=== PATIENT | female | born 1935 | race Caucasian/White ===

== ENCOUNTER 2017-01-16 15:45 | Inpatient (IN) ==
[2017-01-16] MEDS ORDERED: NS 1,000 ML IV ONE (16:11)
[2017-01-16 16:28] LABS: MANUAL DIFF NEEDED? NO
[2017-01-16 16:30] LABS: BASO% 0.8 % (0.0-0.8); EOS# 0.12 X1000 (0.0-0.7); EOS% 1.9 % (0.0-10.0); HEMATOCRIT 39.6 % (37.0-47.0); IMM GRAN# 0.04 X1000 (0.0-0.04); IMM GRAN% 0.6 % (0.0-0.5); LYMPH# 1.42 X1000 (1.2-3.4); MCH 29.6 PG (27-31); MCHC 32.8 g/dL (33-37); MCV 90.2 FL (81-99); MONO# 0.38 X1000 (0.11-0.59); MONO% 5.9 % (1.7-9.3); MPV 10.3 FL (7.4-10.4); NEUT% 68.8 % (42.2-75.2); PLT 293 X1000 (130-400); RBC 4.39 XMIL (4.2-5.4)
[2017-01-16 16:49] LABS: INR 2.67 (0.86-1.15); PROTIME 28.4 Seconds (12.1-15.5)
[2017-01-16 16:50] LABS: PTT PL 52.3 Seconds (22.6-43.9)
[2017-01-16 16:54] LABS: ALBUMIN 3.4 g/dL (3.5-5.0); CALCIUM 8.6 mg/dL (8.8-10.2); MAGNESIUM 1.8 mg/dL (1.5-2.7); POTASSIUM 3.9 mmol/L (3.5-5.1); TOTAL BILIRUBIN 0.6 mg/dL (0.20-1.00); TOTAL PROTEIN 6.3 g/dL (6.3-8.3)
--- NOTE | 2017-01-16 16:59 | Diag Imaging Result Doc PS360 ---
CHEST-PORTABLE - 01/16/2017 INDICATION: Weakness TECHNIQUE: COMPARISON: 01/14/2017 FINDINGS: Lung volumes are much lower, now severely low. Stable sternotomy wires. Stable cardiomegaly. There is probably some nonspecific left basilar infiltrate or atelectasis. IMPRESSION: Nonspecific findings. Electronically signed by Parth Corbin 01/16/2017 4:56 PM
--- NOTE | 2017-01-16 17:00 | EKG Report ---
Test Performed on : 01/16/2017 4:46:34 PM Test Reason : CHEST PAIN Blood Pressure : / mmHG Vent. Rate : 083 BPM Atrial Rate : 075 BPM P-R Int : 000 ms QRS Dur : 080 ms QT Int : 374 ms P-R-T Axes : 000 055 071 degrees QTc Int : 439 ms Atrial fibrillation. Nonspecific T wave abnormality Abnormal ECG No previous ECGs available Unconfirmed Result
--- NOTE | 2017-01-16 17:27 | PROVIDER DOCUMENTATION ---
This chart was entered by Ria Anthony Scribe, acting as scribe for Melissa Florentino MD. HPI-General Adult - General Chief Complaint: Fall Stated Complaint: FALLING Time Seen by Provider: 01/16/17 15:50 Source: patient Allergies/Adverse Reactions: Patient Allergies Allergy/AdvReac Type Severity Reaction Status Date / Time cortisone [Cortisone] AdvReac Intermediate NAUSEA/VOMI Verified 01/16/17 15:48 TING Penicillins AdvReac Intermediate NAUSEA/VOMI Verified 01/16/17 15:48 TING propoxyphene HCl * AdvReac Intermediate NAUSEA/VOMI Verified 01/16/17 15:48 [From Darvon] TING Home Medications: Home Medication List Medication Instructions Recorded Confirmed Last Taken Type Levothyroxine [Synthroid] 50 microgm PO DAILY 10/29/13 01/16/17 05/14/16 08:00 History Lorazepam [Ativan] 1 mg PO QHS 10/29/13 01/16/17 05/13/16 History SIMVAstatin [Zocor] 40 mg PO QHS 10/29/13 01/16/17 05/13/16 History Sertraline HCl 100 mg PO DAILY 10/29/13 01/16/17 05/14/16 08:00 History Cholecalciferol (Vitamin D3) 1,000 unit PO HS 05/14/16 01/16/17 05/13/16 History [Vitamin D3] Hydrocodone/APAP 7.5 mg/325 mg 1 each PO BID PRN PRN 05/14/16 01/16/17 1 Week Ago History [[place]-7.5] Metoprolol Tartrate 50 mg PO DAILY 05/14/16 01/16/17 05/14/16 08:00 History Warfarin [Coumadin] 2 mg PO QHS 05/14/16 01/16/17 05/13/16 History Tramadol [Ultram] 50 mg PO Q6H PRN PRN #12 tablet 05/15/16 01/16/17 Unknown Rx Tramadol [Ultram] 50 mg PO Q6H PRN PRN #12 tablet 01/12/17 01/16/17 Unknown Rx - History of Present Illness -Gen Adult Nature of Presenting Problems: Pt is 81 y/o F presents to the ED with weakness. Pt states recently falling on Saturday. Pt states L wrist fx and multiple rib fx. Pt denies falling since Saturday. Pt states she could not get out of bed this am. Pt denies N and V. Pt denies headache. Pt states she has home health care. Location of Pain/Injury: reports: generalized Pain Radiation: reports: no radiation Quality of Pain: reports: aching Severity: reports: mild Onset/Duration: reports: 3 days ago Timing: reports: still present Context/Activities at Onset: reports: light activity Modifying Factors: improves with: nothing Associated Symptoms: reports: denies symptoms Similar Symptoms Previously?: Yes Recently seen or treated by another doctor?: Yes Review of Systems - Adult - REVIEW OF SYSTEMS - ADULT Constitutional: reports: no symptoms reported Eyes: reports: no symptoms reported Ears, Nose, Mouth & Throat: reports: no symptoms reported Cardiovascular: reports: no symptoms reported Respiratory: reports: no symptoms reported Gastrointestinal: reports: no symptoms reported Genitourinary: reports: no symptoms reported Musculoskeletal: reports: muscle weakness. denies: bone pain, back pain, neck pain Integumentary: reports: no symptoms reported Neurological: reports: no symptoms reported Psychiatric: reports: no symptoms reported Endocrine: reports: no symptoms reported Hematologic/Lymphatic: reports: no symptoms reported Allergic/Immunologic: reports: no symptoms reported All Other Systems: Reviewed and Negative Past History - Adult - PAST MEDICAL HISTORY-ADULT Review of Records: reports: Nursing Assessment Review, Medications Reviewed, Social history reviewed & non-contributory. Major Childhood Illnesses: reports: denies history Cardiovascular: reports: A-Fib, CHF, HTN, hyperlipidemia Respiratory: reports: denies history Gastrointestinal: reports: GERD Obstetrical/Gynecological: reports: denies history Genitourinary: reports: denies history Musculoskeletal: reports: arthritis, fibromyalgia Neurological: reports: denies history Psychiatric: reports: anxiety, depression Endocrine/Immune: reports: Diabetes, thyroid disorder (hypothyroid) Other Conditions: reports: denies history - PRIOR SURGERIES/PROCEDURES Surgical/Procedure History: reports: CABG, cholecystectomy, BTL, tonsillectomy - IMMUNIZATION STATUS Childhood Immunizations: See Nurse Assessment Flu Vaccine: See Nurse Assessment - FAMILY HISTORY Family History: reviewed, not pertinent - SOCIAL HISTORY Smoking: denies Substance Use: denies Living Situation: alone Physical Exam-General - PHYSICAL EXAM-ADULT Initial Vital Signs Reviewed: Yes - CONSTITUTIONAL General Appearance: alert, mild distress - EYES Eyes: PERRL/EOMI, pink conjunctivae - HEAD, EARS, NOSE, MOUTH & THROAT HENMT: normocephalic/atraumatic, moist mucous membranes, normal ENT inspection - NECK Neck: non-tender, full range of motion, supple, normal inspection - RESPIRATORY Respiratory: chest non-tender, lungs clear, normal breath sounds - CARDIOVASCULAR Cardiovascular: normal peripheral pulses, regular rate, rhythm - GASTROINTESTINAL (ABDOMEN) Abdominal Exam: normal bowel sounds, non tender, soft - LYMPHATIC Lymphatic: no adenopathy - MUSCULOSKELETAL Back Exam: normal inspection, no CVA tenderness, no vertebral tenderness Extremity: normal range of motion, non-tender, normal gait, normal inspection, other (L wrist splint) - SKIN Integumentary: normal color, normal turgor, warm/dry, ecchymosis (to bilateral knees) - NEUROLOGIC Neurologic: grossly normal - PSYCHIATRIC Psych/Mental Status: normal mood/affect, oriented x 3 Progress - PLAN OF CARE/RESULTS Progress/Plan/Lab Results: Vital Signs - 8 hr 01/16/17 15:46 Temperature 96.9 F L Pulse Rate 84 Respiratory Rate 16 Blood Pressure 112/066 O2 Sat by Pulse Oximetry 97 Result Diagrams: 01/16/17 16:25 01/16/17 16:25 - EKG 1 Time of EKG reading by physician:: 16:46 EKG Read and Signed by:: Melissa Florentino EKG Interpretation (*Must complete 3 of following elements*): Abnormal Rate: 83 Rhythm: atrial fibrillation Comments: nonspecific T wave abnormality - XRAY 1 XRAY Study: Chest Impression: Normal XRAY Interpretation: nonspecific findings - CONSULTS/PCP/HOSPITALIST Notification #1 *Consult/PCP/Hospitalist*: Dr. Covarrubias Time Discussed: 17:12 Reason/Comments: Dr. Florentino consults with Dr. Covarrubias about admit of Pt Consult Disposition: Admit Departure - Departure Date of Disposition Decision: 01/16/17 Time of Disposition Decision: 17:12 DIAGNOSIS: Wrist fracture, Multiple rib fractures, Generalized weakness, CHF (congestive heart failure) Disposition: ADMITTED INPATIENT 09 Certified Medical Emergency: Emergent Condition: Stable Referrals and Follow-Ups: Jonelle Hernandez MD [Primary Care Provider] - - Critical Care Note This patient required my direct & personal management of CC.: No This chart was documented by the indicated scribe, (Ria Anthony Scribe) and accurately reflects the services I performed and decisions made by me, Melissa Florentino MD, as attested by the provider's signature.
[2017-01-16 19:04] LABS: UR AMPHETAMINES QUAL NONE DETECTED (NONE DETECT); UR BARBITUATES QUAL NONE DETECTED (NONE DETECT); UR BENZODIAZEPIN QUAL NONE DETECTED (NONE DETECT); UR CANNABINOIDS QUAL NONE DETECTED (NONE DETECT); UR COCAINE QUAL NONE DETECTED (NONE DETECT); UR MDMA QUAL NONE DETECTED (NONE DETECT); UR METHADONE QUAL NONE DETECTED (NONE DETECT); UR METHAMPHETAMINE QUAL NONE DETECTED (NONE DETECT); UR OPIATES QUAL NONE DETECTED (NONE DETECT); UR OXYCODONE QUAL NONE DETECTED (NONE DETECT); UR PCP QUAL NONE DETECTED (NONE DETECT); UR TCA QUAL NONE DETECTED (NONE DETECT)
[2017-01-16 19:19] LABS: BILIRUBIN URINE NEGATIVE (NEGATIVE); BLOOD URINE NEGATIVE (NEGATIVE); CLARITY CLEAR (CLEAR); COLOR YELLOW; GLUCOSE URINE NEGATIVE (NEGATIVE); LEUKOCYTES URINE TRACE (NEGATIVE); NITRITE URINE NEGATIVE (NEGATIVE); PROTEIN URINE NEGATIVE (NEGATIVE); SP GRAVITY URINE 1.025; UROBILINOGEN URINE NORMAL
[2017-01-16 19:24] LABS: URINE CAST NONE SEEN /LPF; URINE CRYSTAL NONE SEEN /HPF; URINE CULTURE PL NEEDED? YES; URINE EPITHELIAL CELLS <10 /HPF (<10); URINE RBC <10 /HPF (<10); URINE SOURCE CLEAN CATCH; URINE WBC <10 /HPF (<10)
[2017-01-16] MEDS: COUMADIN PO SCH (23:12)
[2017-01-16] MEDS: NORCO-7.5 PO PRN (23:12)
[2017-01-16] MEDS: ATIVAN PO PRN (23:13)
[2017-01-17 06:20] LABS: HEMATOCRIT 37.9 % (37.0-47.0); HEMOGLOBIN 12.5 g/dL (12.0-16.0); MCH 28.8 PG (27-31); MCV 87.3 FL (81-99); MPV 10.2 FL (7.4-10.4); RBC 4.34 XMIL (4.2-5.4)
[2017-01-17] MEDS: NORCO-7.5 PO PRN ×2 (06:26→18:10)
[2017-01-17 06:32] LABS: HEMOGLOBIN A1C 6.7 % (4.8-6.0)
[2017-01-17 06:50] LABS: ALBUMIN 3.4 g/dL (3.5-5.0); CALCIUM 8.7 mg/dL (8.8-10.2); MAGNESIUM 1.7 mg/dL (1.5-2.7); POTASSIUM 3.3 mmol/L (3.5-5.1); TOTAL BILIRUBIN 0.7 mg/dL (0.20-1.00); TOTAL PROTEIN 6.1 g/dL (6.3-8.3)
[2017-01-17 06:57] LABS: FREE T4 1.12 ng/dL (0.93-1.70)
[2017-01-17] MEDS: HUMALOG SUBQ SCH ×2 (07:21→11:01)
--- NOTE | 2017-01-17 08:41 | PROGRESS NOTE ---
DATE: 01/17/2017 SUBJECTIVE: Patient denies any new complaints. Denies any chest pain, palpitations. Denies any GI or issues. States that she feels too weak to get out of bed. OBJECTIVE: Vital Signs: Temperature 97, pulse 70, respiratory rate 18, BP 109/67, saturation 98% on room air. General: Patient is awake, alert, currently in no respiratory distress. Pleasant to talk with. Elderly female who appears her stated age. Neck: Supple. Cardiovascular: Regular rate. Chest: Relatively clear. Abdomen: Soft. Extremities: She does appear to move all extremities well, although she is generally weak. She has got a brace on her left wrist from recent fall and fracture. Neurologic: No focal changes. Patient is awake, alert, pleasant to talk with. Follows commands. LABS: CBC and CMP essentially normal with an A1c of 6.7. Potassium 3.3. Albumin is 3.4. INR is 2.67 with a D-dimer of 0.57. ASSESSMENT: 1. Generalized weakness with frequent falls. 2. Hypercoagulopathy. Patient is on Coumadin, although her level is therapeutic. Certainly is quite dangerous at this point due to her frequent falls for her to continue on Coumadin. At this point, we will hold her Coumadin and simply do a baby aspirin and will follow. 3. Left wrist fracture. Continue [place]. 4. Hypothyroidism. 5. Hypertension. She is on Toprol. Will follow this, as this could be a nidus for her falls. We will get physical therapy involved. We will continue on telemetry and further orders as needed. She is on Coumadin for atrial fibrillation, currently is rate controlled. cc: Harry Covarrubias MD
[2017-01-17] MEDS ORDERED: SYNTHROID PO SCH (09:00)
[2017-01-17] MEDS: LOPRESSOR PO SCH (09:17)
[2017-01-17] MEDS: ZOLOFT PO SCH (09:17)
[2017-01-17] MEDS: FISH OIL CONCENTRATE PO SCH (09:18)
[2017-01-17] MEDS: ASPIRIN PO SCH (09:18)
--- NOTE | 2017-01-17 15:17 | HISTORY AND PHYSICAL ---
CHIEF COMPLAINT: Generalized pain and weakness. HISTORY OF PRESENT ILLNESS: This is an 81-year-old female who presented to the ER via EMS with weakness. She fell Saturday and was found to have multiple rib fractures as well as a left wrist fracture. She stated that overnight she became weak and pain was such that she was unable to get out of bed this morning. She denied any nausea, vomiting, or any headache or any other accompanying symptoms. Chest x-ray revealed severely low lung volumes with stable sternotomy wires with probably some nonspecific left atelectasis. She is being admitted for further evaluation and treatment. PAST MEDICAL HISTORY: 1. Mechanical aortic valve replacement. 2. Chronic anticoagulation due to #1. 3. Diabetes type 2. 4. Hypertension. 5. History of atrial fibrillation. 6. Hypothyroid. 7. Recurrent falls. PAST SURGICAL HISTORY: Aortic valve replacement. Atrial fibrillation. Cholecystectomy, tubal ligation, and tonsillectomy. SOCIAL HISTORY: She denies alcohol, tobacco, or illicit drug use. ALLERGIES: Penicillin which causes nausea and vomiting, Darvon which causes nausea and vomiting. HOME MEDICATIONS: A list will be obtained. DIAGNOSTICS: Chest x-ray revealed extremely low lung volumes with left basilar atelectasis. REVIEW OF SYSTEMS: A 14 point review of systems is discussed with patient with pertinent positives stated in the HPI. She denied any chest pain, palpitations, dizziness, syncope, any fever, chills, productive cough, shortness of breath, nausea, vomiting, diarrhea, constipation, black or bloody vomitus, black or bloody stools, hematuria, dysuria, frequency, or urgency. PHYSICAL EXAMINATION: GENERAL: This is a 81-year-old female who is lying in the bed, frail, in no distress. VITAL SIGNS: Blood pressure is 136/72 with a heart rate of 86, respirations are 18, temperature is 98 degrees oral with room air saturation of 100%. CARDIOVASCULAR: Regular rate and rhythm. S1 and S2 are appreciated. PULMONARY: Breath sounds are clear with no increased work of breathing noted. GASTROINTESTINAL: Abdomen is soft, nontender, nondistended. Bowel sounds in all 4 quadrants. EXTREMITIES: No clubbing or edema. She does have bilateral bruises to her lower extremities from a recent fall. She does have a brace to her left wrist and bruises to her right hand. Pulses are palpable x4. NEUROLOGIC: She is alert, and oriented x3. ASSESSMENT AND PLAN: 1. Generalized weakness with frequent falls. 2. Chronic anticoagulation due to mechanical aortic valve with a target INR of 2.5-3.5. 3. Left wrist fracture. Splint intact, good PMS 4. Hypothyroidism. 5. Hypertension. 6. History of atrial fibrillation. 7. Frequent falls. She will be admitted and placed on telemetry. We will identify her home medications and continue as appropriate. We will consult physical therapy to evaluate. She may certainly need rehab. In review of the patient's chart she has had frequent falls for quite some time but she requires chronic anticoagulation due to a mechanical aortic valve and atrial fibrillation. At present, we will watch. Her INR is at target now. We will continue to watch her INR closely. We may need Cardiology. This is certainly dangerous for her at this point, given her frequent falls although there is a risk of stopping anticoagulation due to atrial fib and mechanical aortic valve. We will assess her progress. Dictated by BIRGIT Turner for Harry Covarrubias MD cc: BIRGIT Turner MD
[2017-01-17] MEDS: HUMALOG DOSE (PARKWAY) SUBQ SCH ×2 (16:09→21:25)
[2017-01-17] MEDS: VITAMIN D PO SCH (21:25)
[2017-01-17] MEDS: ZOCOR PO SCH (21:25)
[2017-01-17] MEDS: ATIVAN PO PRN (21:25)
[2017-01-17] MEDS: COUMADIN PO SCH (21:25)
[2017-01-18] MEDS: HUMALOG DOSE (PARKWAY) SUBQ SCH ×4 (06:28→21:42)
[2017-01-18] MEDS ORDERED: SYNTHROID PO SCH (07:00)
[2017-01-18] MEDS: LOPRESSOR PO SCH (08:28)
[2017-01-18] MEDS: ASPIRIN PO SCH (08:28)
[2017-01-18] MEDS: FISH OIL CONCENTRATE PO SCH (08:28)
[2017-01-18] MEDS: ZOLOFT PO SCH (08:29)
[2017-01-18] MEDS: NORCO-7.5 PO PRN (08:29)
[2017-01-18] MEDS: ROCEPHIN 1 GM/NS 1 GM/50 ML IVPB IV SCH (12:18)
--- NOTE | 2017-01-18 12:25 | PROGRESS NOTE ---
DATE: 01/18/2017 SUBJECTIVE: The patient notes that she is having pain in the right side where she has broken ribs. She states it hurts with any movement and this was preventing her from moving around at home. PHYSICAL EXAMINATION: Vital Signs: Reviewed. Temperature 99 degrees, pulse 81, respiratory 16, BP 161/72, saturation 99% on room air. General: The patient is awake, alert. She is pleasant to talk with. She is in no respiratory distress. Neck: Supple. CV: Regular rate. Chest clear. Abdomen soft. Extremities: Moves all extremities. Neurologic: No changes. LABORATORY DATA: Urine growing diphtheroids, otherwise, CBC and CMP are normal. ASSESSMENT: 1. Frequent falls. 2. Generalized weakness. 3. Right-sided chest wall pain secondary to previous rib fractures from previous fall. 4. Chronic anticoagulation, on mechanical heart valve. Although would certainly prefer patient not to stay on Coumadin due to her falls, she is mandated to stay on Coumadin with her mechanical heart valve. 5. Left wrist fracture. Continue splinting. 6. Hypothyroidism. 7. Hypertension. PLAN: The patient currently is stable. We will treat her urine, although likely contaminant. She does note that she is more weak than usual. We will continue to follow. Further orders as needed. cc: Harry Covarrubias MD
--- NOTE | 2017-01-18 13:11 | DISCHARGE SUMMARY ---
ADMISSION DATE: 01/16/2017 DISCHARGE DATE: DIAGNOSES: 1. Frequent falls. 2. Generalized weakness. 3. Right-sided chest wall pain secondary to previous rib fractures from previous fall. 4. Mechanical aortic valve replacement on chronic anticoagulation. 5. Left wrist fracture. 6. Hypothyroidism. 7. Hypertension. DIAGNOSTICS: 01/16/2017 chest x-ray reveals lung volumes are low, stable sternotomy wires, stable cardiomegaly. HOSPITAL COURSE: Ms. Hwang presented to the ER complaining of generalized weakness and pain. She has had multiple falls over the previous days and she has sustained rib fractures as well as a wrist fracture. We did continue her home medications. She was seen by physical therapy. The patient is noted to be weak. She is noted to have difficulty moving due to weakness as well as pain from falls. PHYSICAL EXAMINATION: Cardiovascular: Regular rate and rhythm. S1, S2 appreciated. Pulmonary: Breath sounds are clear with no increased work of breathing noted. Gastrointestinal: Abdomen is soft, nontender, nondistended. Bowel sounds in all 4 quadrants. Extremities: No clubbing, cyanosis, or edema. She does have a splint to her left wrist. Neurologic: She is alert and oriented. Vital Signs: Blood pressure is 143/66 with a heart rate of 71, respirations are 18, temperature is 97.5 degrees oral with room air sats 94%. DISCHARGE ACTIVITY: As per physical therapy. DISCHARGE DIET: Healthy heart. DISCHARGE MEDICATIONS: 1. Warfarin 2 mg p.o. at bedtime. 2. Fish oil 300 mg daily. 3. Zoloft 100 mg daily. 4. Metoprolol tartrate 50 mg daily. 5. Ativan 1 mg at bedtime. 6. Synthroid 50 mcg daily. 7. [place] 7.5 b.i.d. p.r.n. 8. Vitamin D3 1000 units at bedtime. 9. Metformin 250 mg at bedtime. INR checks we will be per facility protocol. We would prefer Ms. Hwang not to stay on Coumadin due to her frequent falls although she is mandated to stay on Coumadin due to her mechanical heart valve. She is being discharged to rehab in stable condition via EMS transport. This is a greater than 30 minutes discharge. Dictated by BIRGIT Turner for Harry Covarrubias MD cc: FlorBIRGIT Hadley MD
[2017-01-18] MEDS ORDERED: NORCO-10 PO PRN (19:56)
[2017-01-18] MEDS ORDERED: CYANOCOBALAMIN SUBQ SCH (20:00)
[2017-01-18] MEDS: ATIVAN PO PRN (21:37)
[2017-01-18] MEDS: COUMADIN PO SCH (21:39)
[2017-01-18] MEDS: ZOCOR PO SCH (21:39)
[2017-01-18] MEDS: VITAMIN D PO SCH (21:42)
[2017-01-19] MEDS: HUMALOG DOSE (PARKWAY) SUBQ SCH ×2 (06:08→11:49)
[2017-01-19] MEDS ORDERED: SYNTHROID PO SCH (07:00)
[2017-01-19] MEDS ORDERED: AMARYL PO SCH (08:00)
[2017-01-19] MEDS ORDERED: GLUCOPHAGE PO SCH (08:00)
[2017-01-19] MEDS: ZOLOFT PO SCH (08:23)
[2017-01-19] MEDS: FISH OIL CONCENTRATE PO SCH (08:23)
[2017-01-19] MEDS: LOPRESSOR PO SCH (08:24)
[2017-01-19] MEDS: ASPIRIN PO SCH (08:29)
[2017-01-19 10:13] LABS: INR 2.27 (0.86-1.15); PROTIME 25.1 Seconds (12.1-15.5)
[2017-01-19 11:47] VITALS: BP 142/57
[2017-01-19] MEDS: ROCEPHIN 1 GM/NS 1 GM/50 ML IVPB IV SCH (11:49)
[2017-01-19] MEDS ORDERED: LACTULOSE PO ONE (12:00)
--- NOTE | 2017-01-19 12:15 | PROGRESS NOTE ---
DATE: 01/19/2017 SUBJECTIVE: The patient notes that she is feeling better. She is still having right-sided rib pain. OBJECTIVE: Vital Signs: Temperature 98 degrees, pulse 81, respiratory rate 18, blood pressure 133/61 to 164/85, saturation 96% on room air. General: Patient is awake and alert. She is currently in no respiratory distress. Pleasant to talk with. Neck: Supple. Cardiovascular: Regular rate. Chest: Clear. ASSESSMENT: 1. Hypertension, stable. 2. Left wrist fracture. 3. Right rib fractures. 4. Generalized weakness. 5. Mechanical aortic valve, requiring anticoagulation. 6. Hypertension. PLAN: We will continue as noted. The patient will be transferred to rehabilitation. cc: aHrry Covarrubias MD
[2017-01-19] MEDS ORDERED: VITAMIN D PO SCH (21:00)
== END 2017-01-19 13:35 ==
LOC: P.ED 15:45 → P.MEDSURG 17:51
PROVIDERS: ATTEND Family Medicine

== ENCOUNTER 2017-03-28 10:24 | Inpatient (IN) ==
[2017-03-28] MEDS ORDERED: MORPHINE IV ONE ×2 (11:16→12:35)
[2017-03-28] MEDS ORDERED: ZOFRAN IV ONE (11:16)
[2017-03-28 11:22] LABS: MANUAL DIFF NEEDED? NO
[2017-03-28 11:27] LABS: BASO% 0.7 % (0.0-0.8); EOS# 0.09 X1000 (0.0-0.7); EOS% 1.5 % (0.0-10.0); HEMOGLOBIN 12.7 g/dL (12.0-16.0); IMM GRAN# 0.03 X1000 (0.0-0.04); IMM GRAN% 0.5 % (0.0-0.5); LYMPH# 1.09 X1000 (1.2-3.4); LYMPH% 17.9 % (20.5-51.1); MCH 30.3 PG (27-31); MCHC 33.4 g/dL (33-37); MCV 90.7 FL (81-99); MONO# 0.34 X1000 (0.11-0.59); MONO% 5.6 % (1.7-9.3); NEUT% 73.8 % (42.2-75.2); PLT 274 X1000 (130-400); RBC 4.19 XMIL (4.2-5.4)
[2017-03-28 11:40] LABS: INR 3.15; PROTIME 35.6 Seconds (9.2-11.7)
[2017-03-28 11:45] LABS: CALCIUM 8.6 mg/dL (8.8-10.2); POTASSIUM 3.9 mmol/L (3.5-5.1); TOTAL BILIRUBIN 0.7 mg/dL (0.20-1.00); TOTAL PROTEIN 6.8 g/dL (6.3-8.3)
[2017-03-28] MEDS ORDERED: DILAUDID IV ONE (13:47)
[2017-03-28] MEDS ORDERED: DILAUDID ONE (14:35)
[2017-03-28] MEDS: NORCO-10 PO PRN (19:29)
[2017-03-28] MEDS: VITAMIN D PO SCH (22:46)
[2017-03-28] MEDS: ZOCOR PO SCH (22:46)
[2017-03-28] MEDS: ATIVAN PO SCH (22:47)
[2017-03-28] MEDS: COUMADIN PO SCH ×2 (22:47→23:03)
[2017-03-29] MEDS: MORPHINE IV PRN ×4 (00:46→17:31)
[2017-03-29 05:42] LABS: HEMATOCRIT 36.6 % (37.0-47.0); HEMOGLOBIN 12.1 g/dL (12.0-16.0); MCH 30.6 PG (27-31); MCHC 33.1 g/dL (33-37); MCV 92.7 FL (81-99); RBC 3.95 XMIL (4.2-5.4)
[2017-03-29 05:53] LABS: CALCIUM 8.6 mg/dL (8.8-10.2); POTASSIUM 3.7 mmol/L (3.5-5.1)
[2017-03-29] MEDS: ZOLOFT PO SCH (08:40)
[2017-03-29] MEDS: LOPRESSOR PO SCH (08:41)
[2017-03-29] MEDS ORDERED: SYNTHROID PO SCH (09:00)
[2017-03-29] MEDS: NORCO-10 PO PRN ×2 (09:30→15:20)
[2017-03-29 15:12] LABS: URINE CULTURE NEEDED? NO; URINE MICRO REVIEW NEEDED? NO; URINE SOURCE CLEAN CATCH
[2017-03-29 15:20] LABS: BILIRUBIN URINE NEGATIVE (NEGATIVE); BLOOD URINE NEGATIVE (NEGATIVE); COLOR YELLOW; GLUCOSE URINE NEGATIVE (NEGATIVE); LEUKOCYTES URINE NEGATIVE (NEGATIVE); NITRITE URINE NEGATIVE (NEGATIVE); PH URINE 5.5; PROTEIN URINE TRACE mg/dL (NEGATIVE); SP GRAVITY URINE 1.028; TURBIDITY URINE CLEAR (CLEAR); UROBILINOGEN URINE NORMAL (NORMAL)
[2017-03-29 15:21] LABS: UR EPITHELIAL CELLS <10 /HPF (<10); URINE BACTERIA NEGATIVE /HPF; URINE RBC <10 /HPF (<10); URINE WBC <10 /HPF (<10)
[2017-03-29] MEDS: COUMADIN PO SCH (20:28)
[2017-03-29] MEDS: ATIVAN PO SCH (20:29)
[2017-03-29] MEDS: VITAMIN D PO SCH (20:29)
[2017-03-29] MEDS: ZOCOR PO SCH (20:29)
[2017-03-30] MEDS: MORPHINE IV PRN ×5 (01:46→18:31)
[2017-03-30 06:03] LABS: HEMATOCRIT 34.4 % (37.0-47.0); HEMOGLOBIN 11.1 g/dL (12.0-16.0); MCH 30.3 PG (27-31); MCHC 32.3 g/dL (33-37); MPV 10.2 FL (7.4-10.4); RBC 3.66 XMIL (4.2-5.4)
[2017-03-30 06:28] LABS: CALCIUM 8.8 mg/dL (8.8-10.2); POTASSIUM 4.2 mmol/L (3.5-5.1)
[2017-03-30] MEDS: SYNTHROID PO SCH (06:37)
[2017-03-30] MEDS: LOPRESSOR PO SCH (09:50)
[2017-03-30] MEDS: ZOLOFT PO SCH (09:50)
[2017-03-30] MEDS: VITAMIN D PO SCH (20:43)
[2017-03-30] MEDS: ZOCOR PO SCH (20:43)
[2017-03-30] MEDS: ATIVAN PO SCH (20:43)
[2017-03-30] MEDS: COUMADIN PO SCH (20:43)
[2017-03-31 06:17] LABS: MCH 30.6 PG (27-31); MCHC 33.3 g/dL (33-37); MCV 91.9 FL (81-99); MPV 10.3 FL (7.4-10.4); RBC 3.59 XMIL (4.2-5.4)
[2017-03-31] MEDS: SYNTHROID PO SCH (06:29)
[2017-03-31 06:37] LABS: AGAP 11; BUN 17 mg/dL (8-22); CALCIUM 8.1 mg/dL (8.8-10.2); CHLORIDE 98 mmol/L (98-107); COSMO 276; POTASSIUM 3.6 mmol/L (3.5-5.1); SODIUM 137 mmol/L (136-145); TCO2 28 mmol/L (25-35)
[2017-03-31] MEDS: MORPHINE IV PRN (08:19)
[2017-03-31] MEDS: ZOLOFT PO SCH (08:20)
[2017-03-31] MEDS: LOPRESSOR PO SCH (08:20)
[2017-03-31] MEDS ORDERED: MILK OF MAGNESIA PO ONE (13:05)
[2017-03-31] MEDS ORDERED: MILK OF MAGNESIA PO PRN (13:05)
[2017-03-31] MEDS ORDERED: DULCOLAX PR ONE (13:05)
[2017-03-31] MEDS: NORCO-10 PO PRN (16:58)
[2017-03-31] MEDS: ZOCOR PO SCH (22:41)
[2017-03-31] MEDS: COUMADIN PO SCH (22:41)
[2017-03-31] MEDS: VITAMIN D PO SCH (22:41)
[2017-03-31] MEDS: ATIVAN PO SCH (22:41)
[2017-04-01 06:01] LABS: MANUAL DIFF NEEDED? NO
[2017-04-01 06:05] LABS: BASO% 0.6 % (0.0-0.8); EOS% 3.8 % (0.0-10.0); HEMATOCRIT 33.9 % (37.0-47.0); HEMOGLOBIN 11.3 g/dL (12.0-16.0); IMM GRAN# 0.02 X1000 (0.0-0.04); IMM GRAN% 0.4 % (0.0-0.5); LYMPH# 1.02 X1000 (1.2-3.4); LYMPH% 19.2 % (20.5-51.1); MCH 29.8 PG (27-31); MCHC 33.3 g/dL (33-37); MCV 89.4 FL (81-99); MONO# 0.43 X1000 (0.11-0.59); MONO% 8.1 % (1.7-9.3); MPV 10.1 FL (7.4-10.4); NEUT% 67.9 % (42.2-75.2); PLT 267 X1000 (130-400); RBC 3.79 XMIL (4.2-5.4)
[2017-04-01 06:21] LABS: INR 2.88; PROTIME 32.4 Seconds (9.2-11.7)
[2017-04-01] MEDS: SYNTHROID PO SCH (06:33)
[2017-04-01 06:37] LABS: CALCIUM 8.9 mg/dL (8.8-10.2); POTASSIUM 3.5 mmol/L (3.5-5.1)
[2017-04-01] MEDS ORDERED: MIRALAX PO SCH (09:00)
[2017-04-01] MEDS ORDERED: ZOFRAN IV ONE (09:07)
[2017-04-01] MEDS: NS 1,000 ML IV SCH (09:24)
[2017-04-01] MEDS: MORPHINE IV PRN (10:00)
[2017-04-01] MEDS: NORCO-10 PO PRN (13:42)
[2017-04-01] MEDS: LOPRESSOR PO SCH (14:55)
[2017-04-01] MEDS: ZOLOFT PO SCH (14:55)
[2017-04-01] MEDS: PROTONIX IV SCH (18:49)
[2017-04-01] MEDS: ZOCOR PO SCH (20:14)
[2017-04-01] MEDS: COUMADIN PO SCH (20:14)
[2017-04-01] MEDS: VITAMIN D PO SCH (20:14)
[2017-04-01] MEDS: ATIVAN PO SCH (20:14)
[2017-04-02] MEDS: SYNTHROID PO SCH ×2 (04:55→06:28)
[2017-04-02] MEDS: NORCO-10 PO PRN ×3 (04:55→22:18)
[2017-04-02] MEDS: NS 1,000 ML IV SCH ×3 (04:55→13:42)
[2017-04-02 05:57] LABS: MANUAL DIFF NEEDED? NO
[2017-04-02 06:10] LABS: BASO% 0.6 % (0.0-0.8); EOS# 0.24 X1000 (0.0-0.7); EOS% 5.1 % (0.0-10.0); HEMATOCRIT 33.5 % (37.0-47.0); LYMPH# 1.28 X1000 (1.2-3.4); LYMPH% 27.1 % (20.5-51.1); MCH 29.6 PG (27-31); MCHC 32.8 g/dL (33-37); MCV 90.1 FL (81-99); MONO# 0.33 X1000 (0.11-0.59); NEUT% 60.2 % (42.2-75.2); PLT 277 X1000 (130-400); RBC 3.72 XMIL (4.2-5.4)
[2017-04-02 06:12] LABS: INR 3.04; PROTIME 34.3 Seconds (9.2-11.7)
[2017-04-02 06:29] LABS: CALCIUM 8.2 mg/dL (8.8-10.2); POTASSIUM 3.6 mmol/L (3.5-5.1)
[2017-04-02] MEDS: LOPRESSOR PO SCH (12:38)
[2017-04-02] MEDS: PROTONIX IV SCH (12:38)
[2017-04-02] MEDS: ZOLOFT PO SCH (12:38)
[2017-04-02] MEDS: SODIUM CHLORIDE 0.9% INJ SCH (12:38)
[2017-04-02] MEDS: HUMALOG SUBQ SCH ×2 (13:41→22:51)
[2017-04-02] MEDS: VITAMIN D PO SCH (20:10)
[2017-04-02] MEDS: COUMADIN PO SCH (20:10)
[2017-04-02] MEDS: ZOCOR PO SCH (20:10)
[2017-04-02] MEDS: ATIVAN PO SCH (20:10)
[2017-04-03] MEDS: NS 1,000 ML IV SCH ×2 (01:13→12:37)
[2017-04-03] MEDS: SYNTHROID PO SCH (06:56)
[2017-04-03] MEDS: HUMALOG SUBQ SCH ×2 (06:56→12:38)
[2017-04-03] MEDS: NORCO-10 PO PRN ×2 (08:18→12:52)
[2017-04-03] MEDS: PROTONIX IV SCH ×2 (08:18→12:39)
[2017-04-03] MEDS: SODIUM CHLORIDE 0.9% INJ SCH (08:18)
[2017-04-03] MEDS: LOPRESSOR PO SCH (08:18)
[2017-04-03] MEDS: ZOLOFT PO SCH (08:19)
[2017-04-03 11:57] VITALS: BP 113/62
== END 2017-04-03 14:58 ==
LOC: SUPCPDRO → ED 10:24 → SUATTDRO 14:21 → 4N 14:21
PROVIDERS: ATTEND Internal Medicine

== ENCOUNTER 2017-04-30 09:47 | Inpatient (IN) ==
--- NOTE | 2017-04-30 11:25 | Diag Imaging Result Doc PS360 ---
EXAM: XRAY HIP W/PELVIS BILAT 3-4VWS HISTORY: MULTIPLE FALLS, RIB PAIN TECHNIQUE: AP pelvis and bilateral hips five views COMMENT: There is generalized osteopenia. The hip joint spaces are well-maintained. There is some cortical irregularity of the inferior pubic ramus on the right. This may be due to a chronic fracture. Clinical correlation is recommended. IMPRESSION: Questionable fracture right inferior pubic ramus. Osteopenia. Electronically signed by Shay Espinoza 04/30/2017 11:23 AM
--- NOTE | 2017-04-30 11:30 | Diag Imaging Result Doc PS360 ---
EXAM: RIBS BILATERAL W/PA CHEST HISTORY: MULTIPLE FALLS, RIB PAIN TECHNIQUE: PA chest and bilateral RIBS five views COMMENT: There are sternotomy wires. There is no evidence of pneumothorax or pleural fluid collection. There is a fracture at the anatomic neck of the right humerus. This was also present on 03/28/2017. There is fracture of the right first and second ribs which was also demonstrated the time the previous examination. No additional fractures are demonstrated. IMPRESSION: Fractures of the right first and second rib and right humerus which were present on 03/28/2017 and do demonstrate some evidence of healing. Electronically signed by Shay Espinoza 04/30/2017 11:27 AM
[2017-04-30 11:49] LABS: MANUAL DIFF NEEDED? NO; URINE MICRO REVIEW NEEDED? NO; URINE SOURCE CATH
[2017-04-30 11:51] LABS: BASO% 0.3 % (0.0-0.8); EOS# 0.25 X1000 (0.0-0.7); EOS% 3.8 % (0.0-10.0); HEMOGLOBIN 10.9 g/dL (12.0-16.0); LYMPH# 1.91 X1000 (1.2-3.4); LYMPH% 29.3 % (20.5-51.1); MCH 29.9 PG (27-31); MCV 90.7 FL (81-99); MONO# 0.49 X1000 (0.11-0.59); MONO% 7.5 % (1.7-9.3); MPV 9.8 FL (7.4-10.4); NEUT% 59.1 % (42.2-75.2); PLT 335 X1000 (130-400); RBC 3.64 XMIL (4.2-5.4)
[2017-04-30 11:55] LABS: BILIRUBIN URINE NEGATIVE (NEGATIVE); BLOOD URINE TRACE (NEGATIVE); COLOR YELLOW; GLUCOSE URINE NEGATIVE (NEGATIVE); LEUKOCYTES URINE LARGE (NEGATIVE); NITRITE URINE POSITIVE (NEGATIVE); PH URINE 6.5; PROTEIN URINE TRACE mg/dL (NEGATIVE); SP GRAVITY URINE 1.025; TURBIDITY URINE HAZY (CLEAR); UROBILINOGEN URINE 2 mg/dL (NORMAL)
[2017-04-30 11:56] LABS: UR EPITHELIAL CELLS <10 /HPF (<10); URINE BACTERIA 4+ /HPF; URINE CULTURE NEEDED? YES; URINE RBC <10 /HPF (<10); URINE WBC TNTC /HPF (<10)
[2017-04-30 12:30] LABS: INR 6.2; PROTIME 73.2 Seconds (9.2-11.7); PTT 68.3 Seconds (22.0-36.0)
[2017-04-30] MEDS ORDERED: LEVAQUIN 250 MG/D5W 250 MG/50 ML IVPB IV ONE (13:21)
[2017-04-30] MEDS ORDERED: NS 1,000 ML IV ONE (13:21)
[2017-04-30 14:16] LABS: ALBUMIN 3.7 g/dL (3.5-5.0); CALCIUM 9.1 mg/dL (8.8-10.2); POTASSIUM 3.9 mmol/L (3.5-5.1); TOTAL BILIRUBIN 1.23 mg/dL (0.20-1.00); TOTAL PROTEIN 6.5 g/dL (6.3-8.3)
[2017-04-30] MEDS ORDERED: ZOFRAN IV PRN (15:10)
[2017-04-30] MEDS: HUMULIN R SUBQ SCH ×2 (17:45→21:50)
[2017-04-30] MEDS: ZOSYN 3.375 GM in NS 50 ML IV SCH (17:48)
[2017-04-30] MEDS: NORCO-7.5 PO PRN (19:10)
[2017-04-30] MEDS: ATIVAN PO SCH (21:50)
[2017-04-30] MEDS: VITAMIN D PO SCH (21:50)
[2017-04-30] MEDS: TYLENOL PO PRN (21:50)
[2017-04-30] MEDS: LOPRESSOR PO SCH (21:50)
[2017-04-30] MEDS: PATIENT'S OWN MED PO SCH (21:51)
[2017-05-01] MEDS: ZOSYN 3.375 GM in NS 50 ML IV SCH ×4 (01:31→20:49)
--- NOTE | 2017-05-01 05:34 | EKG Report ---
Test Performed on : 04/30/2017 3:14:25 PM Test Reason : re-ordered Blood Pressure : / mmHG Vent. Rate : 080 BPM Atrial Rate : 101 BPM P-R Int : 000 ms QRS Dur : 080 ms QT Int : 400 ms P-R-T Axes : 000 031 037 degrees QTc Int : 461 ms Atrial fibrillation. with premature ventricular or aberrantly conducted complexes. Abnormal ECG When compared with ECG of 28-MAR-2017 10:32, No significant change was found Unconfirmed Result
--- NOTE | 2017-05-01 05:34 | EKG Report ---
Test Performed on : 04/30/2017 5:12:25 PM Test Reason : No Order in [employer] Blood Pressure : / mmHG Vent. Rate : 069 BPM Atrial Rate : 069 BPM P-R Int : 164 ms QRS Dur : 078 ms QT Int : 412 ms P-R-T Axes : 073 -26 040 degrees QTc Int : 441 ms Normal sinus rhythm. Normal ECG When compared with ECG of 30-APR-2017 15:14, (Unconfirmed) Sinus rhythm. has replaced Atrial fibrillation. Nonspecific T wave abnormality no longer evident in Anterior leads Unconfirmed Result
[2017-05-01 05:49] LABS: MANUAL DIFF NEEDED? NO
[2017-05-01 06:09] LABS: BASO% 0.4 % (0.0-0.8); EOS# 0.24 X1000 (0.0-0.7); EOS% 4.7 % (0.0-10.0); HEMATOCRIT 31.2 % (37.0-47.0); HEMOGLOBIN 10.1 g/dL (12.0-16.0); LYMPH# 1.65 X1000 (1.2-3.4); LYMPH% 32.5 % (20.5-51.1); MCH 29.5 PG (27-31); MCHC 32.4 g/dL (33-37); MCV 91.2 FL (81-99); MONO# 0.29 X1000 (0.11-0.59); MONO% 5.7 % (1.7-9.3); MPV 9.7 FL (7.4-10.4); NEUT% 56.7 % (42.2-75.2); PLT 325 X1000 (130-400); RBC 3.42 XMIL (4.2-5.4)
[2017-05-01 06:17] LABS: ALBUMIN 3.3 g/dL (3.5-5.0); CALCIUM 8.3 mg/dL (8.8-10.2); MAGNESIUM 1.7 mg/dL (1.5-2.7); POTASSIUM 4.2 mmol/L (3.5-5.1); TOTAL BILIRUBIN 1.14 mg/dL (0.20-1.00)
[2017-05-01] MEDS: SYNTHROID PO SCH (06:25)
[2017-05-01] MEDS: TYLENOL PO PRN (06:25)
[2017-05-01] MEDS: PRILOSEC PO SCH (06:30)
[2017-05-01 06:34] LABS: INR 6.67; PTT 71.3 Seconds (22.0-36.0)
[2017-05-01] MEDS: HUMULIN R SUBQ SCH ×4 (06:57→21:04)
[2017-05-01] MEDS: ZOLOFT PO SCH (08:03)
[2017-05-01] MEDS: LOPRESSOR PO SCH ×2 (13:23→20:49)
--- NOTE | 2017-05-01 18:01 | Diag Imaging Result Doc PS360 ---
KNEE 3 VIEWS RIGHT - 05/01/2017 INDICATION: Knee trauma, swelling TECHNIQUE: COMPARISON: 01/12/2017 FINDINGS: Bones are osteopenic. No fracture or subluxation. There are some stable degeneration at the medial joint compartment. No joint effusion. IMPRESSION: No acute disease or change from prior. Electronically signed by Parth Corbin 05/01/2017 5:59 PM
[2017-05-01] MEDS: NORCO-7.5 PO PRN (20:48)
[2017-05-01] MEDS: ATIVAN PO SCH (20:48)
[2017-05-01] MEDS: VITAMIN D PO SCH (20:49)
[2017-05-01] MEDS: PATIENT'S OWN MED PO SCH (21:05)
[2017-05-02] MEDS ORDERED: ZOSYN ONE (02:26)
[2017-05-02] MEDS: ZOSYN 3.375 GM in NS 50 ML IV SCH ×4 (02:31→22:15)
[2017-05-02] MEDS: NORCO-7.5 PO PRN ×4 (02:31→19:02)
[2017-05-02 05:55] LABS: MANUAL DIFF NEEDED? NO
[2017-05-02 06:01] LABS: BASO% 0.3 % (0.0-0.8); EOS# 0.44 X1000 (0.0-0.7); EOS% 7.5 % (0.0-10.0); HEMATOCRIT 29.7 % (37.0-47.0); HEMOGLOBIN 9.7 g/dL (12.0-16.0); MCH 29.7 PG (27-31); MCHC 32.7 g/dL (33-37); MCV 90.8 FL (81-99); MONO% 6.8 % (1.7-9.3); MPV 9.6 FL (7.4-10.4); NEUT% 56.4 % (42.2-75.2); PLT 334 X1000 (130-400); RBC 3.27 XMIL (4.2-5.4)
[2017-05-02] MEDS: TYLENOL PO PRN (06:08)
[2017-05-02] MEDS: SYNTHROID PO SCH (06:08)
[2017-05-02] MEDS: PRILOSEC PO SCH (06:08)
[2017-05-02 06:09] LABS: INR 4.52; PROTIME 52.2 Seconds (9.2-11.7)
[2017-05-02] MEDS: HUMULIN R SUBQ SCH ×4 (06:09→22:14)
[2017-05-02 06:19] LABS: ALBUMIN 3.3 g/dL (3.5-5.0); CALCIUM 8.4 mg/dL (8.8-10.2); TOTAL BILIRUBIN 1.15 mg/dL (0.20-1.00); TOTAL PROTEIN 6.1 g/dL (6.3-8.3)
[2017-05-02] MEDS: ZOLOFT PO SCH (08:02)
[2017-05-02] MEDS: LOPRESSOR PO SCH ×2 (08:02→22:16)
--- NOTE | 2017-05-02 14:05 | Diag Imaging Result Doc PS360 ---
EXAM: LUMBAR SPINE 2-VIEWS INDICATION: back pain TECHNIQUE: 2 views COMPARISON: 06/09/2013 FINDINGS: There is stable dextroscoliosis. There is chronic vertebral body height at L1 and L2. This is stable. There are endplate degenerative osteophytes at multiple levels, especially at the upper lumbar spine. There is no definite acute fracture, subluxation, or significant intrinsic osseous lesion, otherwise. The surrounding soft tissues are essentially unremarkable. IMPRESSION: Stable chronic changes as described but no evidence of acute osseous abnormality. Electronically signed by Raf Wang 05/02/2017 2:03 PM
[2017-05-02] MEDS: PATIENT'S OWN MED PO SCH (22:16)
[2017-05-02] MEDS: ATIVAN PO SCH (22:16)
[2017-05-02] MEDS: VITAMIN D PO SCH (22:16)
[2017-05-03] MEDS: ZOSYN 3.375 GM in NS 50 ML IV SCH ×2 (04:25→09:22)
[2017-05-03] MEDS: HUMULIN R SUBQ SCH ×2 (06:03→12:32)
[2017-05-03 06:40] LABS: INR 3.52
[2017-05-03] MEDS: NORCO-7.5 PO PRN ×2 (06:43→13:31)
[2017-05-03] MEDS: PRILOSEC PO SCH (06:43)
[2017-05-03] MEDS: SYNTHROID PO SCH (06:43)
[2017-05-03] MEDS: ZOLOFT PO SCH (09:21)
[2017-05-03] MEDS: LOPRESSOR PO SCH (09:21)
[2017-05-03 15:43] VITALS: BP 116/68
[2017-05-03] MEDS ORDERED: SEPTRA DS PO SCH (21:00)
[2017-05-03] MEDS ORDERED: COUMADIN PO SCH (21:00)
== END 2017-05-03 16:05 ==
LOC: ED 09:47 → EDIPHOLD 15:07 → 4N 18:50
PROVIDERS: ATTEND Internal Medicine

== ENCOUNTER 2019-02-15 04:51 | Inpatient (IN) ==
[2019-02-15 05:41] LABS: BASO# 0.02 X1000 (0.0-0.2); BASO% 0.3 % (0.0-0.8); EOS# 0.11 X1000 (0.0-0.7); EOS% 1.6 % (0.0-10.0); HEMOGLOBIN 10.9 g/dL (12.0-16.0); IMM GRAN# 0.02 X1000 (0.0-0.04); IMM GRAN% 0.3 % (0.0-0.5); LYMPH# 1.67 X1000 (1.2-3.4); LYMPH% 24.3 % (20.5-51.1); MCH 30.1 PG (27-31); MCV 91.2 FL (81-99); MONO# 0.47 X1000 (0.11-0.59); MONO% 6.9 % (1.7-9.3); MPV 10.5 FL (7.4-10.4); NEUT# 4.57 X1000 (1.4-6.5); NEUT% 66.6 % (42.2-75.2); PLT 234 X1000 (130-400); RBC 3.62 XMIL (4.2-5.4); RDW 13.4 % (11.5-14.5); WBC 6.86 X1000 (4.8-10.8)
--- NOTE | 2019-02-15 05:41 | PROVIDER DOCUMENTATION ---
HPI-Musculoskeletal Pain/Inj - GENERAL Chief Complaint: Fall Stated Complaint: FALL KNEE PAIN Time Seen by Provider: 02/15/19 04:53 Source: patient - HX OF PRESENT ILLNESS-MUSKULOSKELTAL Nature of Presenting Problem: Patient is a 83 year old white female with history of atrial fibrillation (currently taking warfarin) and fibromyalgia who presents by EMS for left knee pain and bruising after falling on left knee 2 days ago. Denies other injuries. Quality of Pain: reports: aching Onset/Duration: abrupt, 2 days ago Any recent injury?: Yes Locality of Occurance: Home Similar Symptoms Previously?: Yes Recently seen or treated by another doctor?: Yes - FALL INJURY Location of Pain/Injury: reports: lower extremity (left knee) Reason for Fall: reports: lost balance Symptoms prior to fall:: reports: none Loss of Consciousness: no loss of consciousness - LOWER EXTREMITY PAIN/INJURY Lower Extremities Pain: leg: left (bruising,pain), knee: left (bruising, pain) Review of Systems - Adult - REVIEW OF SYSTEMS - ADULT Constitutional: denies: chills, fever Eyes: reports: no symptoms reported Ears, Nose, Mouth & Throat: reports: no symptoms reported Cardiovascular: denies: chest pain Respiratory: denies: shortness of breath Gastrointestinal: reports: no symptoms reported Genitourinary: reports: no symptoms reported Musculoskeletal: reports: see HPI Past History - Adult - PAST MEDICAL HISTORY-ADULT Review of Records: reports: Old Records Reviewed, Nursing Assessment Review, Medications Reviewed, Social history reviewed & non-contributory. Major Childhood Illnesses: reports: denies history Cardiovascular: reports: A-Fib, CHF, HTN, hyperlipidemia Respiratory: reports: denies history Gastrointestinal: reports: GERD Obstetrical/Gynecological: reports: denies history Genitourinary: reports: denies history Musculoskeletal: reports: arthritis, fibromyalgia Neurological: reports: denies history Psychiatric: reports: anxiety, depression Endocrine/Immune: reports: Diabetes, thyroid disorder (hypothyroid) Other Conditions: reports: denies history - PRIOR SURGERIES/PROCEDURES Surgical/Procedure History: reports: CABG, cholecystectomy, BTL, tonsillectomy - IMMUNIZATION STATUS Childhood Immunizations: See Nurse Assessment Flu Vaccine: See Nurse Assessment - FAMILY HISTORY Family History: reviewed, not pertinent Physical Exam-Injury Related - Physical Exam-Injury Related Initial Vital Signs Reviewed: Yes General Appearance: alert, obese Eyes: other (clear) Head, Ears, Nose, Mouth & Throat: normocephalic/atraumatic, moist mucous membranes Neck: non-tender, full range of motion, supple Respiratory: lungs clear Cardiovascular: regular rate, rhythm Abdominal Exam: non tender, soft Back Exam: normal inspection, no CVA tenderness Extremity: other (significant swelling and bruising over left knee and lower leg, 2+ peripheral pulses) Progress - PLAN OF CARE/RESULTS Progress/Plan/Lab Results: 02/15/19 14:50 Gram Stain - Final Knee - Left Laboratory Results - last 24 hr 02/15/19 02/15/19 02/15/19 08:00 08:05 08:05 WBC RBC Hgb Hct MCV MCH MCHC RDW Std Deviation Plt Count MPV Immature Gran % (Auto) Neut % (Auto) Lymph % (Auto) [place] % (Auto) Eos % (Auto) Baso % (Auto) Immature Gran # (Auto) Neut # (Auto) Lymph # (Auto) [place] # (Auto) Eos # (Auto) Baso # (Auto) PT INR PTT (Actin FS) Sodium 138 Potassium 4.3 Chloride 100 Carbon Dioxide 26 Anion Gap 13 BUN 18 Creatinine 1.1 H Estimated GFR/1.73 m2 47 BUN/Creatinine Ratio 16 Glucose 258 H Calculated Osmolality 286 Calcium 8.8 Magnesium 1.7 Total Bilirubin 0.80 AST 14 ALT 7 L Alkaline Phosphatase 70 Creatine Kinase 42 Troponin T Total Protein 6.3 Albumin 4.1 Globulin 2.0 Albumin/Globulin Ratio 2.0 Plasma Lactate 1.6 Urine Source Cancelled Urine Color Cancelled Urine Clarity Cancelled Urine pH Cancelled Ur Specific [place] Cancelled Urine Protein Cancelled Urine Ketones Cancelled Urine Blood Cancelled Urine Nitrite Cancelled Urine Bilirubin Cancelled Urine Urobilinogen Cancelled Urine Microscopic RBC Cancelled Urine WBC Cancelled Urine Microscopic WBC Cancelled Ur Epithelial Cells Cancelled Urine Crystals Cancelled Small Round Cells Cancelled Urine Bacteria Cancelled Urine Casts Cancelled Urine Trichomonas Cancelled Urine Yeast Cancelled Urine Glucose Cancelled Blood Type Antibody Screen 02/15/19 02/15/19 02/15/19 08:05 08:05 11:59 WBC RBC Hgb Hct MCV MCH MCHC RDW Std Deviation Plt Count MPV Immature Gran % (Auto) Neut % (Auto) Lymph % (Auto) [place] % (Auto) Eos % (Auto) Baso % (Auto) Immature Gran # (Auto) Neut # (Auto) Lymph # (Auto) [place] # (Auto) Eos # (Auto) Baso # (Auto) PT 44.5 H INR 4.46 PTT (Actin FS) 63.7 H Sodium Potassium Chloride Carbon Dioxide Anion Gap BUN Creatinine Estimated GFR/1.73 m2 BUN/Creatinine Ratio Glucose Calculated Osmolality Calcium Magnesium Total Bilirubin AST ALT Alkaline Phosphatase Creatine Kinase Troponin T < 0.010 Total Protein Albumin Globulin Albumin/Globulin Ratio Plasma Lactate 1.2 Urine Source Urine Color Urine Clarity Urine pH Ur Specific [place] Urine Protein Urine Ketones Urine Blood Urine Nitrite Urine Bilirubin Urine Urobilinogen Urine Microscopic RBC Urine WBC Urine Microscopic WBC Ur Epithelial Cells Urine Crystals Small Round Cells Urine Bacteria Urine Casts Urine Trichomonas Urine Yeast Urine Glucose Blood Type Antibody Screen 02/15/19 02/15/19 02/15/19 16:06 16:06 16:06 WBC 9.90 RBC 3.57 L Hgb 10.8 L Hct 31.9 L MCV 89.4 MCH 30.3 MCHC 33.9 RDW Std Deviation 13.4 Plt Count 286 MPV 10.1 Immature Gran % (Auto) 0.4 Neut % (Auto) 84.4 H Lymph % (Auto) 12.1 L [place] % (Auto) 3.0 Eos % (Auto) 0.0 Baso % (Auto) 0.1 Immature Gran # (Auto) 0.04 Neut # (Auto) 8.35 H Lymph # (Auto) 1.20 [place] # (Auto) 0.30 Eos # (Auto) 0.00 Baso # (Auto) 0.01 PT 35.8 H INR 3.39 PTT (Actin FS) Sodium Potassium Chloride Carbon Dioxide Anion Gap BUN Creatinine Estimated GFR/1.73 m2 BUN/Creatinine Ratio Glucose Calculated Osmolality Calcium Magnesium Total Bilirubin AST ALT Alkaline Phosphatase Creatine Kinase Troponin T Total Protein Albumin Globulin Albumin/Globulin Ratio Plasma Lactate 2.0 Urine Source Urine Color Urine Clarity Urine pH Ur Specific [place] Urine Protein Urine Ketones Urine Blood Urine Nitrite Urine Bilirubin Urine Urobilinogen Urine Microscopic RBC Urine WBC Urine Microscopic WBC Ur Epithelial Cells Urine Crystals Small Round Cells Urine Bacteria Urine Casts Urine Trichomonas Urine Yeast Urine Glucose Blood Type Antibody Screen 02/15/19 16:06 WBC RBC Hgb Hct MCV MCH MCHC RDW Std Deviation Plt Count MPV Immature Gran % (Auto) Neut % (Auto) Lymph % (Auto) [place] % (Auto) Eos % (Auto) Baso % (Auto) Immature Gran # (Auto) Neut # (Auto) Lymph # (Auto) [place] # (Auto) Eos # (Auto) Baso # (Auto) PT INR PTT (Actin FS) Sodium Potassium Chloride Carbon Dioxide Anion Gap BUN Creatinine Estimated GFR/1.73 m2 BUN/Creatinine Ratio Glucose Calculated Osmolality Calcium Magnesium Total Bilirubin AST ALT Alkaline Phosphatase Creatine Kinase Troponin T Total Protein Albumin Globulin Albumin/Globulin Ratio Plasma Lactate Urine Source Urine Color Urine Clarity Urine pH Ur Specific [place] Urine Protein Urine Ketones Urine Blood Urine Nitrite Urine Bilirubin Urine Urobilinogen Urine Microscopic RBC Urine WBC Urine Microscopic WBC Ur Epithelial Cells Urine Crystals Small Round Cells Urine Bacteria Urine Casts Urine Trichomonas Urine Yeast Urine Glucose Blood Type A POSITIVE Antibody Screen NEGATIVE Orders Category Date Time Status Admit - [facility] Routine AdmDCTranf 02/15/19 11:13 Active Activity - Strict Bedrest ORDERED Care 02/15/19 11:20 Active Cardiac Monitoring DIRECTED Care 02/15/19 07:56 Completed Currently Rec Anticoagulation [QM] ROUTINE Care 02/15/19 11:20 Active FSBS/Accucheck Result AC + HS Care 02/15/19 11:20 Active IV Insertion ORDERED Care 02/15/19 07:56 Completed Intake and Output-Strict ORDERED Care 02/15/19 11:13 Active Notify MD of + Sepsis Screen NOW Care 02/15/19 07:56 Completed Notify Physician As Ordered Care 02/15/19 07:56 Active Nursing [Misc. NRSG Communication Order] Q2H Care 02/15/19 11:24 Active Transfuse .Give-Transfuse Care 02/15/19 15:44 Active Update & Confirm Home Medicati 0800 Care 02/15/19 11:23 Active Vital Signs Order Q 4-HR ASSESS Care 02/15/19 11:13 Completed Z-Document. for Tele Applied ORDERED Care 02/15/19 11:22 Completed Diabetic Diet Diet 02/15/19 11:22 Completed CHEST-1 VIEW [RAD] Stat Exams 02/15/19 07:[address] HEAD W/O CONTRAST [CT] Stat Exams 02/15/19 14:48 Completed KNEE 3 VIEWS LEFT [RAD] Stat Exams 02/15/19 05:00 Completed LOWER LEG-LEFT [RAD] Stat Exams 02/15/19 05:00 Completed BASIC METABOLIC PANEL [CHEM] Routine Lab 02/16/19 05:20 Completed BLOOD CULTURE [BLDCUL] Stat Lab 02/15/19 08:05 Results BMP [BASIC METABOLIC PANEL] [CHEM] Stat Lab 02/15/19 05:01 Completed CBC WITH DIFF [HEME] Routine Lab 02/16/19 05:20 Completed CBC WITH ELECTRONIC DIFF [HEME] Stat Lab 02/15/19 05:01 Completed CBC WITH ELECTRONIC DIFF [HEME] Stat Lab 02/15/19 16:06 Completed CK PROFILE [SP CHEM] Stat Lab 02/15/19 08:05 Completed COMPREHENSIVE METABOLIC PANEL [CHEM] Stat Lab 02/15/19 08:05 Completed D-DIMER [COAG] Stat Lab 02/15/19 05:10 Completed FRESH FROZEN PLASMA [BBK] Stat Lab 02/15/19 16:06 Completed LACTATE, PLASMA [CHEM] Lab 02/15/19 08:05 Completed LACTATE, PLASMA [CHEM] Lab 02/15/19 16:06 Completed LACTATE, PLASMA [CHEM] Stat Lab 02/15/19 11:59 Completed MAGNESIUM [CHEM] Stat Lab 02/15/19 08:05 Completed PROTIME WITH INR [COAG] DAILY Lab 02/16/19 05:20 Received PROTIME WITH INR [COAG] DAILY Lab 02/17/19 06:00 Ordered PROTIME WITH INR [COAG] DAILY Lab 02/18/19 06:00 Ordered PROTIME WITH INR [COAG] Stat Lab 02/15/19 08:05 Completed PROTIME WITH INR [COAG] Timed Lab 02/15/19 16:06 Completed PT [PROTIME WITH INR] [COAG] Stat Lab 02/15/19 05:01 Completed PTT [COAG] Stat Lab 02/15/19 08:05 Completed TROPONIN T Stat Lab 02/15/19 08:05 Completed TYPE & SCREEN [BBK] Stat Lab 02/15/19 16:06 Completed WOUND CULTURE INC GRAM STAIN [RM] Routine Lab 02/15/19 14:50 Results 0.9% Sodium Chloride Inj [Ns] 500 ml Med 02/15/19 15:44 Discontinued IV As Directed mls/hr Hydromorphone [Dilaudid] Med 02/15/19 15:55 Discontinued 0.5 mg IV Q3H PRN PRN Insulin Lispro (Monon) [Humalog (Monon)] Med 02/15/19 16:00 Discontinued See Protocol SUBQ 0700,1100,1600,2100 Morphine Med 02/15/19 06:36 Discontinued 4 mg IV NOW ONE Omeprazole [Prilosec] Med 02/16/19 07:00 Discontinued 40 mg PO DAILY@0700 Ondansetron [Zofran] Med 02/15/19 06:37 Discontinued 4 mg IV NOW ONE Ondansetron [Zofran] Med 02/15/19 11:20 Discontinued 4 mg IV Q4H PRN PRN Pharmacy Order [Vancomycin IV Per Pharmacy] Med 02/15/19 15:15 Discontinued 1 each MISC DIRECTED Phytonadione [Vitamin K] Med 02/15/19 07:04 Discontinued 10 mg SUBQ NOW ONE Promethazine [Phenergan] Med 02/15/19 09:02 Discontinued 25 mg IV NOW ONE Sodium Chloride 0.9% Med 02/15/19 09:02 Discontinued 10 ml INJ NOW ONE Vancomycin 1,350 mg Med 02/17/19 04:00 Discontinued 0.9% Sodium Chloride Inj [Ns] 250 ml IV Q36H Vancomycin 1,700 mg Med 02/15/19 16:00 Discontinued 0.9% Sodium Chloride Inj [Ns] 250 ml IV ONCE Oxygen Device Stat Oth 02/15/19 07:56 Completed Telemetry [OM.EQ] Routine Oth 02/15/19 11:13 Active Transfer/Admit Order [TRANSFER] Routine Transfer 02/15/19 15:48 Completed Result Diagrams: 02/16/19 05:20 02/16/19 05:20 - CHANGE OF SHIFT REPORT (ED Provider) 1 Report Given and Care Transferred to:: Dr. Pelayo Time of Transfer: 07:00 Items Pending: Labs, XRAY Results, Ultrasound Results Departure - Departure Date of Disposition Decision: 02/15/19 Time of Disposition Decision: 17:35 DIAGNOSIS: Coagulation/bleeding tests abnormal Hematoma of left lower extremity Qualifiers: Encounter type: initial encounter Qualified Code(s): S80.12XA - Contusion of left lower leg, initial encounter Disposition: ADMITTED INPATIENT 09 Certified Medical Emergency: Emergent Condition: Critical - Critical Care Note This patient required my direct & personal management of CC.: No Attestation - Physician/ NATALI Attestation Patient care was provided by Advanced Practice Provider:: No The physician spent face to face time with patient:: Yes Advanced Practice Provider documentation review:: Supervising physician onsite and consulted in the evaluation and care of this patient. The physician did have a face to face encounter with the patient.
[2019-02-15 05:48] LABS: CALCIUM 8.4 mg/dL (8.8-10.2); POTASSIUM 4.3 mmol/L (3.5-5.1)
[2019-02-15 06:28] LABS: INR 4.58; PROTIME 45.4 Seconds (11.0-16.0)
[2019-02-15] MEDS ORDERED: MORPHINE IV ONE (06:36)
[2019-02-15] MEDS ORDERED: ZOFRAN IV ONE (06:37)
--- NOTE | 2019-02-15 06:59 | Diag Imaging Result Doc PS360 ---
EXAM: KNEE 3 VIEWS LEFT 02/15/2019 HISTORY: left knee pain TECHNIQUE: Left knee three views COMMENT: There is generalized soft tissue swelling and subcutaneous edema. There is no evidence of acute fracture or dislocation. There is some chondrocalcinosis in the medial meniscus. The appearance of the regional skeleton is unchanged since 11/06/2018. IMPRESSION: Soft tissue swelling. No evidence of acute bony disease. Electronically signed by Shay Espinoza 02/15/2019 6:57 AM
--- NOTE | 2019-02-15 07:00 | Diag Imaging Result Doc PS360 ---
EXAM: LOWER LEG-LEFT 02/15/2019 HISTORY: left lower leg pain TECHNIQUE: Left lower leg two views COMMENT: There is generalized superficial soft tissue swelling. There is no evidence of fracture or dislocation or periosteal reaction. IMPRESSION: Soft tissue swelling. Electronically signed by Shay Espinoza 02/15/2019 6:58 AM
[2019-02-15] MEDS ORDERED: VITAMIN K SUBQ ONE (07:04)
[2019-02-15 08:37] LABS: PTT 63.7 Seconds (22.3-41.8)
[2019-02-15 08:39] LABS: INR 4.46; PROTIME 44.5 Seconds (11.0-16.0)
[2019-02-15 08:52] LABS: ALBUMIN 4.1 g/dL (3.5-5.0); CALCIUM 8.8 mg/dL (8.8-10.2); CREATININE 1.1 mg/dL (0.5-0.9); MAGNESIUM 1.7 mg/dL (1.5-2.7); POTASSIUM 4.3 mmol/L (3.5-5.1); TOTAL BILIRUBIN 0.8 mg/dL (0.20-1.00); TOTAL PROTEIN 6.3 g/dL (6.3-8.3)
[2019-02-15] MEDS ORDERED: SODIUM CHLORIDE 0.9% INJ ONE (09:02)
[2019-02-15] MEDS ORDERED: PHENERGAN IV ONE (09:02)
--- NOTE | 2019-02-15 09:07 | Diag Imaging Result Doc PS360 ---
EXAM: CHEST-1 VIEW 02/15/2019 HISTORY: sepsis TECHNIQUE: Erect AP portable at 0847 COMMENT: The inspiration is less optimal than on 06/06/2018. Otherwise are has been no appreciable change. The heart size is enlarged. There are calcifications in the aorta. IMPRESSION: Cardiomegaly. Electronically signed by Shay Espinoza 02/15/2019 9:05 AM
[2019-02-15] MEDS ORDERED: ZOFRAN IV PRN ×3 (11:20→19:32)
--- NOTE | 2019-02-15 11:29 | HISTORY AND PHYSICAL ---
ADDENDUM REPORT Patient was seen and examined by me. Full note dictated and discussed with nurse practitioner. Patient apparently had had vascular surgery and is on blood thinner. She had fallen at home several days ago on her knee. She came today with noting that her knee was swollen and bluish discoloration. We are going to reverse her anticoagulant, place her in the ICU, continue to follow her pulses which are good presently. Further orders as needed. cc: Harry Covarrubias MD
--- NOTE | 2019-02-15 12:48 | HISTORY AND PHYSICAL ---
CHIEF COMPLAINT: Fall, left knee pain. HISTORY OF PRESENT ILLNESS: This is an 83-year-old female with a prior history of atrial fibrillation, mitral valve replacement, mechanical aortic valve, hypertension, hypothyroid, and frequent falls. She presented to the emergency room via EMS due to increasing pain and swelling to her left lower extremity. At the time of my exam, the patient has no family members present. She is unable to give a history as she is sedated, having morphine and Phenergan within the last 2- 1/2 hours. Reportedly, the patient had surgery to her left leg by one of the physicians at [facility] pain clinic. She said they injected something in her knee because it hurt all the time. She does have a history of frequent falls, and she did fall 2 days ago. PAST MEDICAL HISTORY: Atrial fibrillation, aortic valve replacement, diabetes mellitus type 2, chronic anticoagulation with warfarin, hypertension, hypothyroid. PAST SURGICAL HISTORY: Aortic valve replacement, cholecystectomy, tubal ligation, tonsillectomy, and recent neurosurgery to the left lower extremity. SOCIAL HISTORY: Denies alcohol, tobacco, or illicit drug use. ALLERGIES: According to the chart, penicillin, Darvon, and cortisone, which cause nausea and vomiting. REVIEW OF SYSTEMS: Unable to obtain from the patient. PHYSICAL EXAMINATION: GENERAL: This is an 83-year-old female who is lying on the stretcher in the emergency room, sedated at present. VITAL SIGNS: Blood pressure 170/80 with a heart rate of 90, respirations are 17, temperature is 98.5, with room air saturations of 95% to 98%. HEENT: Head is normocephalic, atraumatic. Mucous membranes are moist. Eyes: Pupils are equal, round, reactive to light. Sclerae are anicteric. NECK: Supple with trachea midline. CARDIOVASCULAR: Irregularly irregular rate and rhythm. S1 and S2 appreciated. EXTREMITIES: She has no right lower extremity edema. She does have left lower extremity edema noted. Peripheral pulses are palpable x4 extremities. PULMONARY: Breath sounds are clear. Chest rises and falls symmetric with respiration. GASTROINTESTINAL: Abdomen is soft, nontender, nondistended with bowel sounds in all 4 quadrants. GENITOURINARY: She has no suprapubic tenderness. NEUROLOGIC: She is sedated. She opens her eyes to her name being called. She does move her extremities at random. She does moan to pain when you move or manipulate her left lower extremity. SKIN: Warm and dry. She has a large hematoma to her left knee, with bruising going down to just past her midshin, as well as edema. She does have blisters noted just in the knee area. IMAGING AND LABORATORY DATA: WBC is 6.8 with hemoglobin 10.9, hematocrit 33, and platelets of 234,000. INR at 5 a.m. was 4.58, with repeat at 8 a.m. at 4.46. Sodium is 136, potassium 4.3, BUN 19, creatinine 1, with a glucose of 230. Chest x-ray reveals cardiomegaly. Lower extremity x- ray reveals soft tissue swelling. Knee x-ray reveals soft tissue swelling. No evidence of acute bony disease. ASSESSMENT: 1. Frequent falls. 2. Hematoma left knee 3. Hypercoagulable state in a patient on chronic anticoagulation, whose target INR is 2.5 to 3.5. 4. History of atrial fibrillation. 5. Diabetes mellitus type 2. 6. Hypertension. 7. Hypothyroid. 8. h/o Aortic valve replacement PLAN: The patient will be admitted to ICU for close monitoring, with neurovascular checks every 2 hours. Will keep her left leg elevated. She will be placed on pattern blood glucose with sliding scale insulin. Will identify her home medications, and once they are verified, will review them and continue as appropriate. She will be placed on a diabetic diet. Will repeat a daily PT and INR, a CBC and BMP in the morning, with a CBC and an INR this afternoon at 3:00. Of note, the patient was given vitamin K For DVT prophylaxis, she is already anticoagulated, and for GI prophylaxis, will use Prilosec. Further treatments pending hospital course. Plan has been discussed with Dr. Covarrubias. Dictated by BIRGIT Turner for Harry Covarrubias MD cc: BIRGIT Turner MD [facility]
[2019-02-15] MEDS ORDERED: ZOSYN 3.375 GM in NS 50 ML IV ONE (15:07)
[2019-02-15] MEDS ORDERED: VANCOMYCIN IV PER PHARMACY MISC SCH ×2 (15:15→19:30)
--- NOTE | 2019-02-15 15:23 | Diag Imaging Result Doc PS360 ---
EXAM: CT HEAD W/O CONTRAST 02/15/2019 HISTORY: fall/coumadin toxicity/stanton TECHNIQUE: This exam was performed using automated exposure control, adjustment of mA or kV according to patient size, and/or use of iterative reconstruction technique. COMMENT: There is abnormal lucency in the periventricular white matter both hemispheres particularly in the areas of the atria of the lateral ventricle and the left centrum semiovale ovale. No evidence of mass effect, bleed or abnormal extra-axial fluid collection is present. Compared to 01/12/2017 there has been no significant change. IMPRESSION: Chronic ischemic microvascular white matter disease. No evidence of acute disease. Electronically signed by Shay Espinoza 02/15/2019 3:21 PM
[2019-02-15] MEDS ORDERED: NS 500 ML IV ONE (15:44)
[2019-02-15] MEDS ORDERED: DILAUDID IV PRN (15:55)
[2019-02-15] MEDS ORDERED: HUMALOG (PARKWAY) SUBQ SCH (16:00)
[2019-02-15] MEDS ORDERED: VANCOMYCIN 1,700 MG in NS 250 ML IV ONE (16:00)
[2019-02-15 16:11] LABS: BASO# 0.01 X1000 (0.0-0.2); BASO% 0.1 % (0.0-0.8); HEMATOCRIT 31.9 % (37.0-47.0); HEMOGLOBIN 10.8 g/dL (12.0-16.0); IMM GRAN# 0.04 X1000 (0.0-0.04); IMM GRAN% 0.4 % (0.0-0.5); LYMPH% 12.1 % (20.5-51.1); MCH 30.3 PG (27-31); MCHC 33.9 g/dL (33-37); MCV 89.4 FL (81-99); MPV 10.1 FL (7.4-10.4); NEUT# 8.35 X1000 (1.4-6.5); NEUT% 84.4 % (42.2-75.2); PLT 286 X1000 (130-400); RBC 3.57 XMIL (4.2-5.4); RDW 13.4 % (11.5-14.5)
[2019-02-15 16:27] LABS: INR 3.39; PROTIME 35.8 Seconds (11.0-16.0)
[2019-02-15] MEDS ORDERED: NS 1,000 ML ONE (16:56)
[2019-02-15 19:53] LABS: URINE SOURCE CLEAN CATCH
[2019-02-15 20:01] LABS: BILIRUBIN URINE NEGATIVE (NEGATIVE); BLOOD URINE NEGATIVE (NEGATIVE); COLOR ORANGE; GLUCOSE URINE 1000 mg/dL (NEGATIVE); KETONE URINE 10 mg/dL (NEGATIVE); LEUKOCYTES URINE TRACE (NEGATIVE); NITRITE URINE NEGATIVE (NEGATIVE); PROTEIN URINE TRACE mg/dL (NEGATIVE); SP GRAVITY URINE 1.019; TURBIDITY URINE HAZY (CLEAR); UROBILINOGEN URINE NORMAL (NORMAL)
[2019-02-15 20:03] LABS: UR EPITHELIAL CELLS <10 /HPF (<10); URINE BACTERIA 4+ /HPF; URINE RBC <10 /HPF (<10); URINE WBC <10 /HPF (<10)
[2019-02-15] MEDS: ZOSYN 3.375 GM in NS 50 ML IV SCH (20:18)
[2019-02-15] MEDS: DILAUDID IV PRN ×2 (20:18→23:53)
[2019-02-15] MEDS: HUMALOG SUBQ SCH (20:37)
--- NOTE | 2019-02-15 21:36 | Diag Imaging Result Doc PS360 ---
EXAM: CT EXT LOWER LEFT W/CON 02/15/2019 HISTORY: swelling/hematoma vs abscess TECHNIQUE: This exam was performed using automated exposure control, adjustment of mA or kV according to patient size, and/or use of iterative reconstruction technique. COMMENT: There is subcutaneous edema generally over the inferior thigh and upper lower leg on the left. There is a multilocular fluid collection anterior to the patellar tendon patella and distal femur. There is an apparent fluid debris level in the loculations. There are no apparent associated bony abnormalities. There are no air bubbles. The largest loculation measures 7.9 x 4.7 x 12.7 cm. IMPRESSION: Hematoma and/or abscess. Electronically signed by Shay Espinoza 02/15/2019 9:33 PM
[2019-02-15 22:03] LABS: INR 1.94; PROTIME 23.6 Seconds (11.0-16.0)
[2019-02-16 01:58] LABS: INR 1.47
[2019-02-16] MEDS: ZOSYN 3.375 GM in NS 50 ML IV SCH ×4 (02:37→21:56)
[2019-02-16] MEDS: HUMALOG SUBQ SCH ×4 (06:16→21:56)
[2019-02-16 06:17] LABS: CALCIUM 8.3 mg/dL (8.8-10.2); CREATININE 1.1 mg/dL (0.5-0.9); POTASSIUM 3.7 mmol/L (3.5-5.1)
[2019-02-16 06:38] LABS: BASO# 0.03 X1000 (0.0-0.2); BASO% 0.4 % (0.0-0.8); EOS# 0.02 X1000 (0.0-0.7); EOS% 0.2 % (0.0-10.0); HEMATOCRIT 27.7 % (37.0-47.0); HEMOGLOBIN 8.9 g/dL (12.0-16.0); IMM GRAN# 0.02 X1000 (0.0-0.04); IMM GRAN% 0.2 % (0.0-0.5); LYMPH# 1.48 X1000 (1.2-3.4); LYMPH% 18.1 % (20.5-51.1); MCH 29.6 PG (27-31); MCHC 32.1 g/dL (33-37); MONO# 0.57 X1000 (0.11-0.59); MPV 10.2 FL (7.4-10.4); NEUT# 6.05 X1000 (1.4-6.5); NEUT% 74.1 % (42.2-75.2); PLT 236 X1000 (130-400); RBC 3.01 XMIL (4.2-5.4); RDW 13.5 % (11.5-14.5); WBC 8.17 X1000 (4.8-10.8)
[2019-02-16 06:58] LABS: INR 1.42; PROTIME 18.4 Seconds (11.0-16.0)
[2019-02-16] MEDS ORDERED: PRILOSEC PO SCH (07:00)
[2019-02-16] MEDS: DILAUDID IV PRN (08:19)
[2019-02-16] MEDS: PRILOSEC PO SCH (09:13)
--- NOTE | 2019-02-16 10:16 | ORTHOPAEDICS CONSULTATION ---
DATE: 02/16/2019 CHIEF COMPLAINT: Fall with left knee pain. HISTORY OF PRESENT ILLNESS: Ms Hwang is an 83-year-old female with a prior history of atrial fibrillation, mitral valve replacement, mechanical aortic valve, hypertension, and hypothyroid. Unfortunately, she fell a few days ago, and her left knee has begun to swell a lot. She has started to get some blistering so she came to the ER. She was admitted per the hospitalist service for this left knee pain. PAST MEDICAL HISTORY: Atrial fibrillation, aortic valve replacement, type 2 diabetes, chronic anticoagulation, hypertension, hypothyroid. PAST SURGICAL HISTORY: Aortic valve replacement., cholecystectomy, tubal ligation. SOCIAL HISTORY: She denies any alcohol or tobacco use. ALLERGIES: Penicillin, Darvon, and cortisone but that only causes nausea and vomiting. MEDICATIONS: Per the medical record. REVIEW OF SYSTEMS: Positive for left knee pain. All other systems are essentially negative. PHYSICAL EXAMINATION: General: An elderly-appearing female, lying in her hospital bed in no acute distress. Head and Neck: Normocephalic, atraumatic. Respirations: Nonlabored breathing. Cardiovascular: Regular pulse. Abdomen: Nondistended. Left lower extremity exam: She has a lot of swelling to the knee. There are a lot of good deep dark ecchymoses right on the skin surface. There is blistering there as well. She does have a good 2+ DP pulse. She has decreased sensation to the foot. She has good dorsiflexion and plantar flexion of the foot. RADIOLOGICAL DATA: CT scan of the left knee shows a large hematoma and subcutaneous tissue. ASSESSMENT: Left knee hematoma. PLAN: Ms Hwang's INR was over 4 when she came in, combine that with the fall she recently had, and she ended getting a hematoma in this leg and so I discussed with her about operative intervention to drain the hematoma and put a drain in. I also discussed this with her son, Donovan, and they both agreed that was the best course of action. I went over with her the procedure, risks, benefits, and potential complications. Risks include, but are not limited to, infection, wound healing problems, damage to nerves, arteries, veins, numbness, continued pain, DVT, and anesthesia-related risks. After discussing these with the patient, she expressed understanding and wished to proceed. We will get everything set up for today for operative intervention. cc: Isauro Judge MD
[2019-02-16] MEDS ORDERED: XYLOCAINE-MPF 2% ONE (11:40)
[2019-02-16] MEDS ORDERED: DIPRIVAN 1% ONE (11:40)
[2019-02-16] MEDS ORDERED: OXY IR PO PRN (13:08)
[2019-02-16] MEDS ORDERED: ZOFRAN IV PRN (13:08)
[2019-02-16] MEDS ORDERED: HEPARIN 25,000 UNITS/D5W 25,000 UNIT/250 ML IV.SOLN IV SCH (14:15)
[2019-02-16] MEDS ORDERED: HEPARIN IV ONE (14:50)
[2019-02-16] MEDS: MORPHINE IV PRN (15:47)
--- NOTE | 2019-02-16 19:54 | OPERATIVE NOTE ---
PROCEDURE DATE: 02/16/2019 PREOPERATIVE DIAGNOSIS: Left knee hematoma. POSTOPERATIVE DIAGNOSIS: Left knee hematoma. PROCEDURE: Left knee hematoma evacuation. SURGEON: Dr. Isauro Judge. DOG SITTER: BIRGIT Baltazar, who was an integral part of the case helping with all aspects of the case, helping increase our OR efficiency greatly. ANESTHESIA: General with LMA. ESTIMATED BLOOD LOSS: 100 mL. DRAINS: Hemovac. DISPOSITION: To PACU hemodynamically stable. INDICATION FOR PROCEDURE: Ms. Hwang is an 83-year-old female who has is hypercoagulable with an INR of over 4 who came in with a large hematoma on her knee. I discussed with her about operative intervention. She expressed understanding and wished to proceed. DESCRIPTION OF PROCEDURE: Ms. Hwang was identified in the preop holding area. The left knee was marked as correct surgical site. She was then wheeled to the operating room, placed supine on the operating room table. All bony prominences were well padded. She was induced under general anesthesia. LMA was placed. Left lower extremity was then prepped with chlorhexidine, gluconate scrub and ChloraPrep, and draped in normal sterile fashion. Surgical pause was performed. We identified the correct patient, correct side, and the correct procedure. Preop antibiotics were given. I started with an incision over the lateral aspect of the knee, and dissection was carried down just in the deep subcutaneous tissue, had a lot of serous-looking fluid and also sanguinous looking fluid come out and evacuated a lot of clot as well and all the superficial subcutaneous tissue. I did not feel anything go down through the deep fascia. I was able to evacuate the whole hematoma out. We then irrigated everything copiously with normal saline. We initially made our incision and got the discharge of fluid. We did take cultures at that time but nothing looked purulent while we were in their. We did debride the fracture blisters on top as well. Once everything was evacuated and decompressed, I put the Hemovac drain in and then closed the incision with 2-0 Maxon and liz on the skin and then the Natan wrap was used as compression all the way from the foot all the way up the thigh. She was then awakened from general anesthesia, moved to her own bed and taken to PACU in stable condition. Postop, she will be nonweightbearing left lower extremity, and we will continue to monitor. cc: Isauro Judge MD
[2019-02-17] MEDS: ZOSYN 3.375 GM in NS 50 ML IV SCH ×4 (03:26→20:44)
[2019-02-17] MEDS ORDERED: VANCOMYCIN 1,350 MG in NS 250 ML IV SCH (04:00)
[2019-02-17] MEDS: VANCOMYCIN 1,350 MG in NS 250 ML IV SCH (04:02)
[2019-02-17 05:36] LABS: BASO# 0.02 X1000 (0.0-0.2); BASO% 0.3 % (0.0-0.8); EOS% 1.5 % (0.0-10.0); HEMATOCRIT 24.1 % (37.0-47.0); HEMOGLOBIN 7.7 g/dL (12.0-16.0); IMM GRAN# 0.02 X1000 (0.0-0.04); IMM GRAN% 0.3 % (0.0-0.5); LYMPH# 1.37 X1000 (1.2-3.4); LYMPH% 20.8 % (20.5-51.1); MCH 30.7 PG (27-31); MONO# 0.52 X1000 (0.11-0.59); MONO% 7.9 % (1.7-9.3); MPV 10.1 FL (7.4-10.4); NEUT# 4.57 X1000 (1.4-6.5); NEUT% 69.2 % (42.2-75.2); PLT 189 X1000 (130-400); RBC 2.51 XMIL (4.2-5.4); RDW 13.3 % (11.5-14.5)
[2019-02-17 05:53] LABS: INR 1.52; PROTIME 18.5 Seconds (11.0-16.0)
[2019-02-17] MEDS ORDERED: HEPARIN IV PRN ×2 (05:54→06:43)
[2019-02-17 06:25] LABS: CALCIUM 8.4 mg/dL (8.8-10.2); CREATININE 1.3 mg/dL (0.5-0.9); MAGNESIUM 1.8 mg/dL (1.5-2.7); POTASSIUM 3.5 mmol/L (3.5-5.1)
[2019-02-17] MEDS: HUMALOG SUBQ SCH ×4 (06:27→20:44)
[2019-02-17] MEDS: PRILOSEC PO SCH (06:27)
[2019-02-17] MEDS ORDERED: HEPARIN 25,000 UNITS/D5W 25,000 UNIT/250 ML IV.SOLN IV SCH (08:50)
--- NOTE | 2019-02-17 11:34 | ORTHOPAEDICS PROGRESS NOTE ---
DATE: 02/17/2019 SUBJECTIVE DATA: Ms. Hwang is sitting in the bed. She states she is feeling better today. OBJECTIVE DATA: Left Lower Extremity Exam: She is still wrapped in the Flex Natan. The drain is still intact but it does look like it is clogged and not draining as well. The drain has not been turned on intake and output yet but it looks like there is about 50 mL of blood. She is on a heparin drip presently. The foot still does have some pitting edema. She has good sensation to the foot. There is 2+ pedal pulse. ASSESSMENT: Status post left knee hematoma evacuation. PLAN: We are going to keep the Flex Natan on today. I want to keep some good compression on that. They did just flush the drain with heparin so we will see if it can start working. We are going to plan to take the Flex Natan down tomorrow to assess the skin. We do expect that some of that skin will and we will do some local wound care. Hopefully, we can avoid going back to the OR but we can do that if necessary. Right now, we are just going to wait for the skin to kind of declare itself and proceed from there. She is going to continue the IV heparin for now. We will check on her again in the morning. Dictated by BIRGIT Baltazar for Isauro Judge MD cc: BIRGIT Baltazar MD [facility]
[2019-02-17] MEDS: HEPARIN 25,000 UNITS/D5W 25,000 UNIT/250 ML IV.SOLN IV SCH (13:50)
[2019-02-17] MEDS: MORPHINE IV PRN (16:30)
--- NOTE | 2019-02-17 18:08 | PROGRESS NOTE ---
DATE: 02/17/2019 SUBJECTIVE: The patient has no major complaints except discomfort. OBJECTIVE: vital signs: Blood pressure 121/58, heart rate of 105, respiratory rate 17, temperature 97.5 degrees. Cardiovascular: Regular rate and rhythm. Pulmonary: Bilateral breath sounds. Clear to auscultation. Gastrointestinal: Soft and nontender. Extremities: Her leg is swollen and wrapped in Natan bandage. LABORATORIES: White count 6, hemoglobin and hematocrit 7.7 and 24, platelets 189,000. PTT 215. Creatinine 1.3. PROBLEM LIST: 1. Right hematoma requiring intraoperative evacuation. We are holding anticoagulants for the time being and we will continue to monitor. There is no clear evidence at this point of infection. She has no white count. She has no fever. We may be able to stop antibiotics if cultures are clear after another day or so. Briefly, aortic valve replacement and mechanical valve on anticoagulation. We have resumed her heparin and we will resume her Coumadin once she is stabilized. There is still question of planning of doing further intervention, so we have held off on anything at this point. 2. Diabetes. Continue her regular medications and follow. She is on a full liquid diet. We will continue to monitor closely. DISPOSITION: Pending her clinical status. cc: Mark Arthur MD
[2019-02-17 20:42] LABS: HEMATOCRIT 24.9 % (37.0-47.0)
[2019-02-17] MEDS: ATIVAN PO SCH (20:43)
[2019-02-17] MEDS: ZOCOR PO SCH (20:44)
[2019-02-18] MEDS: ZOSYN 3.375 GM in NS 50 ML IV SCH ×3 (04:05→16:14)
[2019-02-18 05:48] LABS: INR 1.36
[2019-02-18 05:56] LABS: BASO# 0.02 X1000 (0.0-0.2); BASO% 0.4 % (0.0-0.8); EOS# 0.24 X1000 (0.0-0.7); EOS% 4.7 % (0.0-10.0); HEMATOCRIT 23.5 % (37.0-47.0); HEMOGLOBIN 7.3 g/dL (12.0-16.0); IMM GRAN# 0.02 X1000 (0.0-0.04); IMM GRAN% 0.4 % (0.0-0.5); LYMPH# 1.32 X1000 (1.2-3.4); LYMPH% 25.9 % (20.5-51.1); MCH 30.5 PG (27-31); MCHC 31.1 g/dL (33-37); MCV 98.3 FL (81-99); MONO% 7.9 % (1.7-9.3); MPV 10.4 FL (7.4-10.4); NEUT# 3.09 X1000 (1.4-6.5); NEUT% 60.7 % (42.2-75.2); PLT 190 X1000 (130-400); RBC 2.39 XMIL (4.2-5.4); RDW 13.6 % (11.5-14.5); WBC 5.09 X1000 (4.8-10.8)
[2019-02-18 06:33] LABS: CALCIUM 7.9 mg/dL (8.8-10.2); POTASSIUM 3.2 mmol/L (3.5-5.1)
[2019-02-18] MEDS: HEPARIN 25,000 UNITS/D5W 25,000 UNIT/250 ML IV.SOLN IV SCH ×2 (06:40→13:07)
[2019-02-18] MEDS: HUMALOG SUBQ SCH ×4 (07:03→21:24)
--- NOTE | 2019-02-18 07:04 | ORTHOPAEDICS PROGRESS NOTE ---
DATE: 02/18/2019 SUBJECTIVE DATA: Ms. Hwang is lying comfortably in bed. She states her pain is much better. OBJECTIVE DATA: Left Lower Extremity Examination: I took the surgical dressing down. The drain had coagulated blood in it and was no longer draining. The knee overall looks a lot better. The skin is nice and soft now. She does have some superficial wounds that are starting to develop. Overall, they still had some good bleeding tissue and looked okay. I do not see any areas of necrosis today. Her incision looks great. No erythema or drainage there. She does have good sensation in her lower leg. She has severe diffuse ecchymosis. ASSESSMENT: Status post left hematoma evacuation, left knee hematoma evacuation. PLAN: We are going to continue to follow Ms. Hwang. Really, at this point, we are hoping we can just do local wound care. I do think that she will probably have some areas of necrosis and eventually, we may have to take her back to the OR and debride those areas. We are kind of just waiting on the skin to declare itself and see where those areas are going to be. Right now, she does not have any areas of necrosis so we may be able to just treat with local wound care and go from there. We will check back on her first thing in the morning. Dictated by BIRGIT Baltazar for Isauro Judge MD cc: BIRGIT Baltazar MD [facility]
[2019-02-18] MEDS: PRILOSEC PO SCH (07:37)
[2019-02-18] MEDS: LOPRESSOR PO SCH (08:41)
[2019-02-18] MEDS: AMARYL PO SCH (08:42)
[2019-02-18] MEDS: SYNTHROID PO SCH (08:42)
[2019-02-18] MEDS: ZOLOFT PO SCH (08:42)
[2019-02-18] MEDS ORDERED: PROTONIX PO SCH (09:00)
[2019-02-18] MEDS ORDERED: KLOR-CON PO ONE (09:40)
[2019-02-18] MEDS ORDERED: BENADRYL PO ONE (11:28)
[2019-02-18] MEDS ORDERED: TYLENOL PO ONE (11:28)
[2019-02-18] MEDS ORDERED: NS 500 ML IV ONE ×2 (11:28)
[2019-02-18] MEDS ORDERED: LASIX IV SCH (11:30)
[2019-02-18] MEDS: VANCOMYCIN 1,350 MG in NS 250 ML IV SCH (17:38)
[2019-02-18] MEDS ORDERED: LASIX ONE (19:25)
[2019-02-18] MEDS: ATIVAN PO SCH (21:24)
[2019-02-18] MEDS: ZOCOR PO SCH (21:24)
[2019-02-19] MEDS: HUMALOG SUBQ SCH ×4 (06:24→20:50)
[2019-02-19] MEDS: PRILOSEC PO SCH (06:24)
[2019-02-19] MEDS: ZOLOFT PO SCH (08:52)
[2019-02-19] MEDS: LOPRESSOR PO SCH (08:52)
[2019-02-19] MEDS: AMARYL PO SCH (08:52)
[2019-02-19] MEDS: SYNTHROID PO SCH (08:52)
[2019-02-19 10:50] LABS: BASO# 0.04 X1000 (0.0-0.2); BASO% 0.6 % (0.0-0.8); EOS# 0.21 X1000 (0.0-0.7); EOS% 3.3 % (0.0-10.0); HEMATOCRIT 29.1 % (37.0-47.0); HEMOGLOBIN 9.4 g/dL (12.0-16.0); IMM GRAN# 0.04 X1000 (0.0-0.04); IMM GRAN% 0.6 % (0.0-0.5); LYMPH# 1.64 X1000 (1.2-3.4); LYMPH% 25.6 % (20.5-51.1); MCH 29.7 PG (27-31); MCHC 32.3 g/dL (33-37); MCV 91.8 FL (81-99); MONO% 7.8 % (1.7-9.3); MPV 10.9 FL (7.4-10.4); NEUT# 3.98 X1000 (1.4-6.5); NEUT% 62.1 % (42.2-75.2); PLT 264 X1000 (130-400); RBC 3.17 XMIL (4.2-5.4); RDW 15.7 % (11.5-14.5); WBC 6.41 X1000 (4.8-10.8)
[2019-02-19 11:04] LABS: CALCIUM 8.6 mg/dL (8.8-10.2); CREATININE 1.2 mg/dL (0.5-0.9); POTASSIUM 3.9 mmol/L (3.5-5.1)
--- NOTE | 2019-02-19 18:42 | ORTHOPAEDICS PROGRESS NOTE ---
DATE: 02/19/2019 SUBJECTIVE: Ms. Hwang is lying in bed this morning, still complaining of some pain in the left lower extremity. OBJECTIVE: On left lower extremity exam, we took her dressing down today. The incision looks to be healing well. The hematoma is not coming back. Her skin is nice and soft, but it is very ecchymotic just throughout the entire thigh, knee and calf. She remains neurovascularly intact. ASSESSMENT: Status post left knee hematoma evacuation. PLAN: I did discuss with Ms. Hwang that we will have to keep a really good eye on her skin. It could still have a chance of dying and creating a wound. She is weight-bear as tolerated to the left lower extremity. I will probably keep her here at least 1 more day to take a look at everything and see how her skin is going to respond. All of her cultures have come back negative, so I do not think it was infected, it was just a big hematoma on the knee. cc: Isauro Judge MD
--- NOTE | 2019-02-19 20:16 | ORTHOPAEDICS PROGRESS NOTE ---
DATE: 02/19/2019 SUBJECTIVE: Ms. Hwang is sitting comfortably in her bed. She states overall her pain is much better. OBJECTIVE: Left lower extremity exam: I did take her dressing down. She has very little drainage. Some of the wounds are still superficial, but they are getting a little necrotic. The knee is still nice and soft. Her incision looks okay. No erythema or drainage. She has a lot of diffuse ecchymosis. ASSESSMENT: Status post left hematoma evacuation. PLAN: We will continue to follow Ms. Hwang. I am hoping we can continue to do local wound care. I still do not think that the knee has fully declared itself. We are going to continue to keep an eye on things. I am going to continue to leave compression so hopefully we keep the hematoma from reforming. Dictated by BIRGIT Baltazar for Isauro Judge MD cc: BIRGIT Baltazar MD
[2019-02-19] MEDS: LOVENOX SUBQ SCH (20:43)
[2019-02-19] MEDS: ZOCOR PO SCH (20:43)
[2019-02-19] MEDS: ATIVAN PO SCH (20:43)
[2019-02-20 05:33] LABS: BASO# 0.01 X1000 (0.0-0.2); BASO% 0.2 % (0.0-0.8); EOS# 0.11 X1000 (0.0-0.7); EOS% 1.7 % (0.0-10.0); HEMATOCRIT 27.4 % (37.0-47.0); HEMOGLOBIN 8.9 g/dL (12.0-16.0); IMM GRAN# 0.04 X1000 (0.0-0.04); IMM GRAN% 0.6 % (0.0-0.5); LYMPH# 1.81 X1000 (1.2-3.4); LYMPH% 28.3 % (20.5-51.1); MCH 28.8 PG (27-31); MCHC 32.5 g/dL (33-37); MCV 88.7 FL (81-99); MONO# 0.54 X1000 (0.11-0.59); MONO% 8.4 % (1.7-9.3); MPV 10.1 FL (7.4-10.4); NEUT# 3.89 X1000 (1.4-6.5); NEUT% 60.8 % (42.2-75.2); PLT 282 X1000 (130-400); RBC 3.09 XMIL (4.2-5.4); RDW 15.1 % (11.5-14.5)
[2019-02-20 05:55] LABS: CALCIUM 8.5 mg/dL (8.8-10.2); POTASSIUM 3.2 mmol/L (3.5-5.1)
[2019-02-20] MEDS: PRILOSEC PO SCH (06:35)
[2019-02-20] MEDS: HUMALOG SUBQ SCH ×4 (06:35→21:30)
[2019-02-20] MEDS: ZOLOFT PO SCH (08:21)
[2019-02-20] MEDS: SYNTHROID PO SCH (08:21)
[2019-02-20] MEDS: LOPRESSOR PO SCH (08:21)
[2019-02-20] MEDS: AMARYL PO SCH (08:21)
[2019-02-20] MEDS: LOVENOX SUBQ SCH ×2 (08:25→20:09)
[2019-02-20] MEDS ORDERED: KLOR-CON PO ONE (14:16)
--- NOTE | 2019-02-20 16:46 | DISCHARGE SUMMARY ---
ADMISSION DATE: 02/15/2019 DISCHARGE DATE: 02/20/2019 DIAGNOSES: 1. Frequent falls. 2. Hematoma left knee requiring intraoperative evacuation. 3. Diabetes mellitus. 4. Hypercoagulable state, resolved. 5. History of atrial fibrillation. 6. Hypertension. 7. History of aortic valve replacement. CONSULT: Dr. Isauro Judge, Orthopedics . DIAGNOSTICS: 1. Left knee x-ray revealed soft tissue swelling. No evidence of acute bony disease. 2. Lower extremity CT revealed hematoma and/or abscess to the left lower extremity. 3. 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 No evidence of acute disease. 4. Microbiology. Blood cultures x2 revealed no growth. 5. Wound culture Gram stain revealed no growth. No anaerobes isolated. 6. Clostridium difficile toxin negative. HOSPITAL COURSE: Ms. Hwang presented to the emergency room after falling, having a hematoma to her left knee., She did have an INR of 4.5 with a target INR of 2.5 to 3.5 with a aortic valve. Due to hematoma , Coumadin was held. She was given fresh frozen and vitamin K. She was transferred to [facility] for orthopedic evaluation and following. She underwent left knee hematoma evacuation on February 16. She has been followed daily by Orthopedics. She does continue with a compressive dressing and is weightbearing as tolerated to this left lower extremity. Hemoglobin, hematocrit dropped to 7.3 and 23.5 on the , she was transfused with 1 unit of packed cells and today she is 8.9 and 27.4. Today INR is 1. Warfarin 5 mg at bedtime has been restarted. She has remained afebrile. All cultures have returned negative. DISCHARGE PHYSICAL EXAMINATION: Cardiovascular: Regular rate and rhythm. S1 and S2 are appreciated. Pulmonary: Breath sounds are clear. No increased work of breathing noted. Gastrointestinal: Abdomen soft, nontender, nondistended. Bowel sounds in all 4 quadrants. Extremities: She does have Natan wrap in place to her left lower extremity. DISCHARGE MEDICATIONS: 1. Ativan 0.5 mg p.o. at bedtime. 2. Oxycodone IR 5 mg q.4 hours p.r.n. pain. 3. Pantoprazole 40 mg p.o. daily. 4. Warfarin 2.5 mg p.o. at bedtime. 5. Zocor 40 mg p.o. at bedtime. 6. Zoloft 100 mg p.o. daily. 7. Metoprolol 25 mg p.o. daily. 8. Levothyroxine 75 mcg p.o. daily. 9. Amaryl 4 mg p.o. daily. LABS: The patient will need an INR drawn in 2 days, this can be called to the medical technical writer at her facility for Warfarin dosing. FOLLOWUP: Dr. Judge. The patient will be discharged on 02/21/2019 via EMS transport to [facility]. TIME SPENT: Greater than 30 minutes. Dictated by BIRGIT Turner for Mark Arthur MD cc: BIRGIT Turner MD [facility]
[2019-02-20] MEDS: ZOCOR PO SCH (20:08)
[2019-02-20] MEDS: ATIVAN PO SCH (20:08)
[2019-02-20] MEDS ORDERED: COUMADIN PO SCH (21:00)
[2019-02-20] MEDS ORDERED: CALMOSEPTINE OINTMENT TOP PRN (21:32)
[2019-02-21] MEDS: MORPHINE IV PRN (00:28)
[2019-02-21 04:52] LABS: BASO# 0.02 X1000 (0.0-0.2); BASO% 0.3 % (0.0-0.8); EOS# 0.17 X1000 (0.0-0.7); EOS% 2.8 % (0.0-10.0); HEMATOCRIT 28.4 % (37.0-47.0); HEMOGLOBIN 9.1 g/dL (12.0-16.0); IMM GRAN# 0.04 X1000 (0.0-0.04); IMM GRAN% 0.7 % (0.0-0.5); LYMPH# 1.82 X1000 (1.2-3.4); LYMPH% 30.1 % (20.5-51.1); MCH 29.1 PG (27-31); MCV 90.7 FL (81-99); MONO# 0.51 X1000 (0.11-0.59); MONO% 8.4 % (1.7-9.3); MPV 9.9 FL (7.4-10.4); NEUT# 3.49 X1000 (1.4-6.5); NEUT% 57.7 % (42.2-75.2); PLT 314 X1000 (130-400); RBC 3.13 XMIL (4.2-5.4); RDW 15.1 % (11.5-14.5); WBC 6.05 X1000 (4.8-10.8)
[2019-02-21 05:26] LABS: CALCIUM 8.6 mg/dL (8.8-10.2); CREATININE 0.9 mg/dL (0.5-0.9); POTASSIUM 3.7 mmol/L (3.5-5.1)
[2019-02-21] MEDS: HUMALOG SUBQ SCH (06:23)
[2019-02-21] MEDS: PRILOSEC PO SCH (06:32)
[2019-02-21 08:40] VITALS: BP 136/66
[2019-02-21] MEDS: SYNTHROID PO SCH (08:53)
[2019-02-21] MEDS: LOPRESSOR PO SCH (08:53)
[2019-02-21] MEDS: LOVENOX SUBQ SCH (08:53)
[2019-02-21] MEDS: AMARYL PO SCH (08:53)
[2019-02-21] MEDS: ZOLOFT PO SCH (08:53)
--- NOTE | 2019-02-21 21:45 | DISCHARGE SUMMARY ---
ADMISSION DATE: 02/15/2019 DISCHARGE DATE: 02/21/2019 Day of discharge she is doing well. She is lying in bed. No major complaints. OBJECTIVE: Blood pressure was 136/66, heart rate of 72, respiratory rate of 16, temperature 98.4 degrees. Cardiovascular: Regular rate and rhythm. Pulmonary: Bilateral breath sounds clear to auscultation. GI: Soft, nontender, nondistended. Bowel sounds are positive. LABORATORY DATA: White count 6, hemoglobin and hematocrit 9 and 28, platelets of 314,000. Basic was normal. PROBLEM LIST: Hematoma, likely traumatic. Her hemoglobin and hematocrit is stable. She seems to be doing okay actually increased. I do not think there is any signs of infection. All cultures have been negative so we stopped antibiotics. In any case she clinically is felt stable and surgery felt that she could likely be discharged with close wound care. The only addition from yesterday's discharge summary is that she will need Lovenox 70 q.12 until her Coumadin is therapeutic. She will be discharged on 2.5 at bedtime Coumadin but she will need PT/INR in 48-72 hours and then adjust her Coumadin accordingly. Her goal INR should be 2.5 to 3.5 because she is a mechanical valve patient. This is a [id number] encounter note with Fartun Mark. TIME SPENT: 35 minutes. cc: Mark Arthur MD
== END 2019-02-21 11:40 | DRG 605 ==
LOC: SUPCPDRO → P.ED 04:51 → 3S 16:11 → SUATTDRO 16:11 → 3S 17:35
PROVIDERS: ATTEND Internal Medicine